=== PATIENT | male | born 1965 | race Caucasian/White ===

== ENCOUNTER 2016-09-05 21:19 | Emergency (ER) | payer MEDICARE, OTHER ==
[~2016-09-05 21:19] MED LIST: ACET650S11 PR; WAL-10TA2 PO; ZANTTAB9 PO; ZOCO40TA PO
[2016-09-05 21:21] VITALS: BP 131/75; PULSE 72; RESP 14; TEMP 97.5; O2SAT 97
[2016-09-05] MEDS ORDERED: PROM25TA5 PO (23:29)
[2016-09-05] MEDS ORDERED: ACET325T PO (23:29)
[2016-09-05] MEDS ORDERED: ALAV10TA10 PO (23:29)
[2016-09-05] MEDS ORDERED: RANI150C PO (23:29)
[2016-09-05] MEDS ORDERED: ZOCO20TA PO (23:29)
--- NOTE | 2016-09-05 23:33 | PD ---
HPI Chief Complaint: Fall Time Seen by Provider: 23:33 Travel History International Travel<30 days: No Contact w/Intl Traveler<30days: No Traveled to known affect area: No History of Present Illness HPI 51-year-old male with Down syndrome, who resides in a [facility], presents to emergency department for evaluation left wrist pain. Patient states that he was walking with one of the workers earlier today when he fell, landing on his outstretched left upper extremity. He also scraped his face on the ground during the fall. He did not lose consciousness. He has been acting himself this afternoon. No nausea, vomiting, focal deficits, or weakness. He has been complaining of left wrist pain. Pain is primarily on the anterior aspect of the left wrist. He states it is her second with movement of his wrist. He rates the pain a 7 out of 10. He has no alterations in sensation. He has no other symptoms to report. PFSH Past Medical History Heart Rhythm Problems: No Cardiac Catheterization: No Cardiovascular Problems: No High Cholesterol: No Congestive Heart Failure: No Developmental Delay: Yes Diabetes: No Diminished Hearing: No Tetanus Vaccination: Unknown Past Surgical History Coronary Artery Bypass Graft: No Social History Alcohol Use: No Tobacco Use: No Substance Use: No Allergies-Medications (Allergen,Severity, Reaction): Coded Allergies: Anectine (Unverified Allergy, Unknown, 09/05/16) Reported Meds & Prescriptions Reported Meds & Active Scripts Active Ibuprofen 600 Mg Tab 600 Mg PO Q8HR PRN Reported Phenergan (Promethazine HCl) 25 Mg Tab 25 Mg PO Q8HR PRN Alavert (Loratadine) 10 Mg Tab 10 Mg PO DAILY Acetaminophen 325 Mg Tab 325 Mg PO Q4-6H PRN Zocor (Simvastatin) 20 Mg Tab 20 Mg PO HS Ranitidine (Ranitidine HCl) 150 Mg Cap 150 Mg PO BID Review of Systems Except as stated in HPI: all other systems reviewed are Neg Physical Exam Narrative GENERAL: Well-nourished, male patient, ambulatory no acute distress SKIN: Warm and dry. Abrasion above the top lip and on the left cheek HEAD: Normocephalic. EYES: No scleral icterus. No injection or drainage. NECK: Supple, trachea midline. No JVD or lymphadenopathy. CARDIOVASCULAR: Regular rate and rhythm without murmurs, gallops, or rubs. RESPIRATORY: Breath sounds equal bilaterally. No accessory muscle use. EXTREMITY: There is mild swelling and tenderness of the left distal forearm and wrist. There is no obvious deformity. The skin is intact. Flexion and extension of the fingers is normal. The fingers are warm and well perfused. Sensation to light touch is intact in the hand. BACK: Nontender without obvious deformity. No CVA tenderness. Data Data Last Documented VS Vital Signs Date Time Temp Pulse Resp B/P Pulse Ox O2 Delivery O2 Flow Rate FiO2 09/05/16 21:21 97.5 72 14 131/75 97 Room Air Orders Wrist, Complete (Hzn1odk) (09/05/16 ) Splint Or Brace Apply/Monitor (09/06/16 00:08) Cockup Hand Splint (09/06/16 ) [facility] Medical Decision Making Medical Screen Exam Complete: Yes Emergency Medical Condition: Yes Medical Record Reviewed: Yes Differential Diagnosis Fracture versus sprain versus dislocation versus contusion Narrative Course 51-year-old male presents to emergency department for evaluation of left wrist pain following a trip and fall. X-ray imaging is without acute bony abnormality. The patient will be provided a Velcro wrist splint in counseling care. He agrees to return immediately with any acute worsening of symptoms. Diagnosis Primary Impression: Left wrist sprain Qualified Code: S63.502A - Left wrist sprain, initial encounter Additional Impression: Facial abrasion Qualified Code: S00.81XA - Facial abrasion, initial encounter Referrals: Primary Care Physician Patient Instructions: General Instructions, Wrist Sprain (ED) Additional Instructions: WEAR WRIST BRACE FOR SUPPORT AND COMFORT ICE AND ELEVATE WRIST TO REDUCE PAIN AND SWELLING FOLLOW UP WITH YOUR PRIMARY CARE PROVIDER OVER THE COUNTER ANTIBIOTIC OINTMENT TO FACIAL ABRASION RETURN TO ED WITH ACUTE WORSENING OF SYMPTOMS Med/Other Pt SpecificInfo: Prescription(s) given Scripts Ibuprofen 600 Mg [id number] Mg PO Q8HR PRN (PAIN) #30 TAB Ref 0 Prov:Susie Ly 09/06/16 Disposition: 01 DISCHARGE HOME Condition: Stable Susie Ly Sep 05, 2016 23:33
--- NOTE | 2016-09-05 23:54 | RADRPT ---
EXAM DATE/TIME: 09/05/2016 23:56 [facility] COMPARISON: No previous studies available for comparison. INDICATIONS : Patient fell this afternoon with caregiver. MEDICAL HISTORY : None. SURGICAL HISTORY : None. ENCOUNTER: Initial ACUITY: 1 day PAIN SCORE: 0/10 LOCATION: Left Wrist. FINDINGS: Three view examination of the left wrist demonstrates no soft tissue swelling, dislocation, or fractu re. The carpal bones are in normal alignment. The joint spaces are maintained. Bony mineralization is normal. CONCLUSION: No acute disease. Rodrigo Watts MD on September 05, 2016 at 23:53 Board Certified Radiologist. This report was verified electronically.
[2016-09-06] MEDS ORDERED: IBUP-232 PO (00:12)
== END 2016-09-06 00:49 | disposition home or self-care (01) ==
LOC: NEPB 21:19
DX: S63.502A Unspecified sprain of left wrist, initial encounter (principal); S00.81XA Abrasion of other part of head, initial encounter; Q90.9 Down syndrome, unspecified; W01.0XXA Fall on same level from slipping, tripping and stumbling without subsequent striking against object, initial encounter; Y93.01 Activity, walking, marching and hiking; Y92.199 Unspecified place in other specified residential institution as the place of occurrence of the external cause
CPT/HCPCS: 73110; 99284; L3908

== ENCOUNTER 2016-12-24 07:34 | Observation (INO) | payer MEDICARE, OTHER ==
[~2016-12-24] VITALS: Ht 160 cm; Wt 60.0 kg
[2016-12-24] VITALS (11 sets, daily range): BP systolic 94–116; BP diastolic 56–81; PULSE 55–96; RESP 16–20; TEMP 97.8–98.6; O2SAT 95–98
[~2016-12-24 07:34] MED LIST changes: +ACET325T PO; -ACET650S11 PR; +ALAV10TA10 PO; +IBUP-232 PO; +PROM25TA5 PO; +RANI150C PO; -WAL-10TA2 PO; -ZANTTAB9 PO; +ZOCO20TA PO; -ZOCO40TA PO
[2016-12-24] MEDS ORDERED: SODIUM CHLOR 0.9% 1000 ML INJ 1,000 ML IV SCH ×4 (07:40→11:21)
--- NOTE | 2016-12-24 07:43 | PD ---
HPI Chief Complaint: Altered Mental Status Time Seen by Provider: 07:40 Travel History International Travel<30 days: No Contact w/Intl Traveler<30days: No History of Present Illness HPI This is a 51-year-old male who has a history of Down syndrome who is brought into the emergency department for altered mental status. His retirement caregiver provides most of the information. She reports that this morning she was doing laundry with him stepped out of the room and then walked back in and he was on the floor having "convulsions". She's never seen him have a seizure before and he has no known seizure disorder. He seemed confused after this episode. She also reports that over the past several weeks he's been increasingly tired and sleepy. She says yesterday he was at lunch and he fell asleep and hit his head on the table and sustained a small abrasion. She also says he's been "spacing out" and they've had to get his attention more frequently which is unusual for him. PFSH Past Medical History Heart Rhythm Problems: No Cardiac Catheterization: No Cardiovascular Problems: No High Cholesterol: No Congestive Heart Failure: No Developmental Delay: Yes Diabetes: No Diminished Hearing: No Past Surgical History Coronary Artery Bypass Graft: No Social History Alcohol Use: No Tobacco Use: No Substance Use: No Allergies-Medications (Allergen,Severity, Reaction): Coded Allergies: Anectine (Unverified Allergy, Unknown, 12/24/16) Reported Meds & Prescriptions Reported Meds & Active Scripts Active Ibuprofen 600 Mg Tab 600 Mg PO Q8HR PRN Reported Phenergan (Promethazine HCl) 25 Mg Tab 25 Mg PO Q8HR PRN Alavert (Loratadine) 10 Mg Tab 10 Mg PO DAILY Acetaminophen 325 Mg Tab 325 Mg PO Q4-6H PRN Zocor (Simvastatin) 20 Mg Tab 20 Mg PO HS Ranitidine (Ranitidine HCl) 150 Mg Cap 150 Mg PO BID Review of Systems ROS Limitations: Poor Historian Physical Exam Narrative GENERAL:Well appearing, no acute distress SKIN: Small abrasion on the mid forehead. HEAD: Atraumatic. Normocephalic. EYES: Pupils equal and round. No injection or drainage. ENT: Moist mucous membranes NECK: Trachea midline. CARDIOVASCULAR: Regular rate and rhythm. No murmur appreciated. RESPIRATORY: Clear to auscultation. Breath sounds equal bilaterally. GASTROINTESTINAL: Abdomen soft, non-tender, nondistended. MUSCULOSKELETAL: No obvious deformities. NEUROLOGICAL: Awake and alert but not answering questions. No obvious cranial nerve deficits. Moving all extremities. Data Data Last Documented VS Vital Signs Date Time Temp Pulse Resp B/P Pulse Ox O2 Delivery O2 Flow Rate FiO2 12/24/16 09:18 64 18 98/57 96 Room Air 12/24/16 07:45 98.6 Orders Complete Blood Count With Diff (12/24/16 07:40) Comprehensive Metabolic Panel (12/24/16 07:40) Urinalysis - C+S If Indicated (12/24/16 07:40) Ct Brain W/O Iv Contrast(Rout) (12/24/16 07:40) Blood Glucose (12/24/16 07:40) Ecg Monitoring (12/24/16 07:40) Iv Access Insert/Monitor (12/24/16 07:40) Oximetry (12/24/16 07:40) Sodium Chloride 0.9% Flush (Ns Flush) (12/24/16 07:45) Sodium Chlor 0.9% 1000 Ml Inj (Ns 1000 M (12/24/16 07:40) Haloperidol Inj (Haldol Inj) (12/24/16 07:45) Restraints Non-Violent ZULMA.Q3H (12/24/16 07:40) Electrocardiogram (12/24/16 ) Troponin I (12/24/16 07:43) Sodium Chlor 0.9% 1000 Ml Inj (Ns 1000 M (12/24/16 09:00) Admit Order (Ed Use Only) (12/24/16 09:57) Labs Laboratory Tests Test 12/24/16 12/24/16 07:40 09:05 White Blood Count 5.3 TH/MM3 Red Blood Count 4.11 MIL/MM3 Hemoglobin 12.4 GM/DL Hematocrit 36.1 % Mean Corpuscular Volume 87.9 FL Mean Corpuscular Hemoglobin 30.2 PG Mean Corpuscular Hemoglobin 34.3 % Concent Red Cell Distribution Width 14.7 % Platelet Count 210 TH/MM3 Mean Platelet Volume 7.1 FL Neutrophils (%) (Auto) 54.5 % Lymphocytes (%) (Auto) 36.6 % Monocytes (%) (Auto) 5.9 % Eosinophils (%) (Auto) 2.1 % Basophils (%) (Auto) 0.9 % Neutrophils # (Auto) 2.9 TH/MM3 Lymphocytes # (Auto) 1.9 TH/MM3 Monocytes # (Auto) 0.3 TH/MM3 Eosinophils # (Auto) 0.1 TH/MM3 Basophils # (Auto) 0.0 TH/MM3 CBC Comment DIFF FINAL Differential Comment Sodium Level 141 MEQ/L Potassium Level 3.9 MEQ/L Chloride Level 108 MEQ/L Carbon Dioxide Level 24.3 MEQ/L Anion Gap 9 MEQ/L Blood Urea Nitrogen 21 MG/DL Creatinine 1.49 MG/DL Estimat Glomerular Filtration 50 ML/MIN Rate Random Glucose 107 MG/DL Calcium Level 8.1 MG/DL Total Bilirubin 0.4 MG/DL Aspartate Amino Transf 19 U/L (AST/SGOT) Alanine Aminotransferase 22 U/L (ALT/SGPT) Alkaline Phosphatase 74 U/L Troponin I LESS THAN 0.02 NG/ML Total Protein 6.8 GM/DL Albumin 2.9 GM/DL Urine Color LIGHT-YELLOW Urine Turbidity CLEAR Urine pH 5.0 Urine Specific [place] 1.012 Urine Protein NEG mg/dL Urine Glucose (UA) NEG mg/dL Urine Ketones NEG mg/dL Urine Occult Blood TRACE Urine Nitrite NEG Urine Bilirubin NEG Urine Urobilinogen LESS THAN 2.0 MG/DL Urine Leukocyte Esterase NEG Urine RBC 3 /hpf Urine WBC 1 /hpf Microscopic Urinalysis Comment CATH-CULT NOT IND MDM Medical Decision Making Medical Screen Exam Complete: Yes Emergency Medical Condition: Yes Interpretation(s) Afebrile, mild tachycardia, normotensive No leukocytosis Mild anemia Renal insufficiency Troponin is normal Urinalysis is negative for infection Differential Diagnosis Seizure, dehydration, electrolyte abnormality, arrhythmia Narrative Course This is a 51-year-old male who presents to the emergency department having had an episode of possible seizure. He was placed on a monitor and an IV was established. Labs are obtained which were reassuring. CT of the head was negative for intracranial hemorrhage. Patient has a history of Down syndrome and received Ativan prior to arrival with EMS so focused neurologic assessment is challenging. I think patient would benefit from observation, EEG and neurology consultation as he has never had a seizure before. Physician Communication Physician Communication Discussed with Dr. Kennedy Diagnosis Primary Impression: Seizure Admitting Information Admitting Physician Requests: Observation Ban Landry MD December 24, 2016 07:43
[2016-12-24] MEDS ORDERED: SODIUM CHLORIDE 0.9% FLUSH 5 ML FLUSH IV FLUSH PRN (07:45)
[2016-12-24] MEDS ORDERED: HALOPERIDOL LACTATE 5 MG/ML AMP IV PUSH ONE (07:45)
[2016-12-24 08:13] LABS: AUTOMATED NEUTROPHIL # 2.9 TH/MM3 (1.8-7.7); BASOPHIL % 0.9 % (0.0-2.0); EOSINOPHIL # 0.1 TH/MM3 (0-0.4); EOSINOPHIL % 2.1 % (0.0-4.0); HEMATOCRIT 36.1 % (39.0-51.0); HEMO FLAGS DIFF FINAL; LYMPH % 36.6 % (9.0-44.0); LYMPHOCYTE # 1.9 TH/MM3 (1.0-4.8); MEAN CELL VOLUME 87.9 FL (80.0-100.0); MEAN CORPUSCULAR HEMOGLOBIN 30.2 PG (27.0-34.0); MEAN CORPUSCULAR HGB CONC 34.3 % (32.0-36.0); MONO % 5.9 % (0.0-8.0); NEUT % 54.5 % (16.0-70.0); PLATELET COUNT 210 TH/MM3 (150-450); RED BLOOD COUNT 4.11 MIL/MM3 (4.50-5.90); RED CELL DISTRIBUTION WIDTH 14.7 % (11.6-17.2); WHITE BLOOD COUNT 5.3 TH/MM3 (4.0-11.0)
--- NOTE | 2016-12-24 08:26 | RADRPT ---
EXAM DATE/TIME: 12/24/2016 08:04 [facility] COMPARISON: No previous studies available for comparison. INDICATIONS : Confusion. Fall, hit head. RADIATION DOSE: 56.35 CTDIvol (mGy) MEDICAL HISTORY : Down's syndrome SURGICAL HISTORY : None. ENCOUNTER: Initial ACUITY: 1 day PAIN SCALE: 0/10 LOCATION: cranial TECHNIQUE: Multiple contiguous axial images were obtained of the head. Using automated exposure control and adj ustment of the mA and/or kV according to patient size, radiation dose was kept as low as reasonably a chievable to obtain optimal diagnostic quality images. FINDINGS: CEREBRUM: There is moderate generalized atrophy. Ventricles are normal in size. No evidence of midline shift, mass lesion, hemorrhage or acute infarction. No extra-axial fluid collections are seen. POSTERIOR FOSSA: The cerebellum and brainstem demonstrate no acute finding. The 4th ventricle is midline. The cerebe llopontine angle is unremarkable. EXTRACRANIAL: Left maxillary sinus is atelectatic. SKULL: The calvaria is intact. No evidence of skull fracture. CONCLUSION: No acute intracranial abnormality is identified. Jose Elias Casey MD on December 24, 2016 at 8:22 Board Certified Radiologist. This report was verified electronically.
[2016-12-24 08:31] LABS: ANION GAP 9 MEQ/L (5-15); AST (GOT) 19 U/L (15-37); BICARBONATE 24.3 MEQ/L (21.0-32.0); BLOOD UREA NITROGEN 21 MG/DL (7-18); CHLORIDE 108 MEQ/L (98-107); GLOMERULAR FILTRATION RATE 50 ML/MIN (>89); POTASSIUM 3.9 MEQ/L (3.5-5.1); SODIUM (NA) 141 MEQ/L (136-145)
[2016-12-24 08:34] LABS: ALKALINE PHOSPHATASE 74 U/L (45-117); ALT (GPT) 22 U/L (12-78); TOTAL BILIRUBIN ADULT 0.4 MG/DL (0.2-1.0)
[2016-12-24 09:37] LABS: BLOOD, URINE TRACE (NEG); GLUCOSE,URINE NEG (NEG); KETONE, URINE NEG (NEG); NITRITE,URINE NEG (NEG); URINE COLOR LIGHT-YELLOW (YELLW/STRAW)
[2016-12-24 09:38] LABS: COMMENT (UR) CATH-CULT NOT IND; CULTURE IF INDICATED CATH CULTURE NOT IND
[2016-12-24] MEDS ORDERED: MAGNESIUM HYDROXIDE SUSP 30 ML CUP PO PRN (10:00)
[2016-12-24] MEDS ORDERED: ACETAMINOPHEN 325 MG TAB PO PRN (10:00)
[2016-12-24] MEDS ORDERED: LACTULOSE SYRUP 20 GM/30 ML CUP PO PRN (10:00)
[2016-12-24] MEDS ORDERED: LORazepam 2 MG/ML VIAL IV PUSH PRN (10:00)
[2016-12-24] MEDS ORDERED: ONDANSETRON HCL 4 MG/2 ML VIAL IVP PRN (10:00)
[2016-12-24] MEDS ORDERED: BISACODYL 10 MG SUPP RECTAL PRN (10:00)
[2016-12-24] MEDS ORDERED: NALOXONE HCL 0.4 MG/ML AMP IV PRN (10:00)
[2016-12-24] MEDS ORDERED: SENNOSIDES 8.6 MG TAB PO PRN (10:00)
[2016-12-24] MEDS ORDERED: SODIUM CHLORIDE 0.9% FLUSH 10 ML FLUSH IV FLUSH PRN (10:00)
[2016-12-24] MEDS: HEPARIN SODIUM - SQ 10,000 UNITS/ML VIAL SQ SCH ×2 (10:48→22:17)
--- NOTE | 2016-12-24 11:25 | EKG ---
Date Performed: 12/24/2016 Time Performed: 07:58:12 PTAGE: 51 years EKG: Probable Sinus rhythm NORMAL ECG No significant change from prior electrocardiogram. PREVIOUS TRACING : 05/16/2015 15.38 DOCTOR: John Romano Interpretating Date/Time 12/24/2016 11:25:22
[2016-12-24] MEDS: levETIRAcetam INJ 500 MG in SODIUM CHLORIDE 0.9% INJ 100 ML IV SCH ×2 (11:32→22:16)
--- NOTE | 2016-12-24 12:20 | MB ---
cc: SILAS CUMMINGS DATE OF CONSULTATION 12/24/2016 INDICATION A 51-year-old man, right-handed, lives in a fpc with Down syndrome. He was found having a grand mal seizure on the floor. Had some urinary incontinence and then had a postictal episode. Brought him to the hospital. MEDICATIONS AT HOME 1. Phenergan. 2. Loratadine. 3. Tylenol. 4. Zocor. 5. Ranitidine. ALLERGIES ANECTINE. According to the detasseling crew supervisor she is not quite sure if he has any major medical problems. Obviously he must have some high cholesterol. Never had a seizure before. She has known him for five years. He is usually up, around, talking. REVIEW OF SYSTEMS Really unable to perform. MEDICATIONS Current meds: 1. Here he was given Keppra 500 q. 12. 2. Some subcutaneous heparin. PHYSICAL EXAMINATION VITAL SIGNS: Afebrile, 87, 116/81. There were no carotid bruits. HEART: Regular rhythm. I did not detect a murmur. HEENT: He has poor dentition. NEUROLOGIC: His visual serrano appear full. His pupils are equal. He follow commands fairly well. Face is symmetric. He had normal strength in the upper and lower extremities bilaterally. Toes downgoing bilaterally. He is awake, a little sleepy. He remembered he was in the hospital after I told him where he was with immediate me recall. LABORATORY DATA Basic metabolic profile normal except for a creatinine of 1.49. Glucose was normal. LFTs, troponin normal. Albumin is 2.9. UA negative. CBC is essentially normal. IMAGING CT scan of the brain was negative. IMPRESSION New-onset seizure activity. I agree with the Keppra. We will check an EEG, MRI and some other blood work. Otherwise he will probably be able to be discharged tomorrow on Keppra 500 b.i.d. MD SALVADOR Fernández/NORBERTO /11:22 AM /12:12 PM
--- NOTE | 2016-12-24 14:29 | HHI.PR ---
Objective Objective Results - Vital Signs Date Time Temp Pulse Resp B/P Pulse Ox O2 Delivery O2 Flow Rate FiO2 12/24/16 12:51 64 12/24/16 11:33 97.8 65 16 95/60 95 12/24/16 10:59 79 18 102/59 96 12/24/16 09:18 64 18 98/57 96 Room Air 12/24/16 07:45 87 20 96 Room Air 12/24/16 07:45 98.6 96 20 116/81 96 Room Air 12/24/16 07:45 96 Room Air 12/24/16 07:40 98.6 92 20 116/81 96 Result Diagram: 12/24/16 0740 12/24/16 0740 Other Results Laboratory Tests Test 12/24/16 12/24/16 07:40 09:05 White Blood Count 5.3 Red Blood Count 4.11 Hemoglobin 12.4 Hematocrit 36.1 Mean Corpuscular Volume 87.9 Mean Corpuscular Hemoglobin 30.2 Mean Corpuscular Hemoglobin 34.3 Concent Red Cell Distribution Width 14.7 Platelet Count 210 Mean Platelet Volume 7.1 Neutrophils (%) (Auto) 54.5 Lymphocytes (%) (Auto) 36.6 Monocytes (%) (Auto) 5.9 Eosinophils (%) (Auto) 2.1 Basophils (%) (Auto) 0.9 Neutrophils # (Auto) 2.9 Lymphocytes # (Auto) 1.9 Monocytes # (Auto) 0.3 Eosinophils # (Auto) 0.1 Basophils # (Auto) 0.0 CBC Comment DIFF FINAL Differential Comment Erythrocyte Sedimentation Rate 23 Sodium Level 141 Potassium Level 3.9 Chloride Level 108 Carbon Dioxide Level 24.3 Anion Gap 9 Blood Urea Nitrogen 21 Creatinine 1.49 Estimat Glomerular Filtration 50 Rate Random Glucose 107 Calcium Level 8.1 Total Bilirubin 0.4 Aspartate Amino Transf 19 (AST/SGOT) Alanine Aminotransferase 22 (ALT/SGPT) Alkaline Phosphatase 74 Troponin I LESS THAN 0.02 Total Protein 6.8 Albumin 2.9 Urine Color LIGHT-YELLOW Urine Turbidity CLEAR Urine pH 5.0 Urine Specific [place] 1.012 Urine Protein NEG Urine Glucose (UA) NEG Urine Ketones NEG Urine Occult Blood TRACE Urine Nitrite NEG Urine Bilirubin NEG Urine Urobilinogen LESS THAN 2.0 Urine Leukocyte Esterase NEG Urine RBC 3 Urine WBC 1 Microscopic Urinalysis Comment CATH-CULT NOT IND Physical Exam Physical Exam PHYSICAL EXAMINATION GENERAL: This is a well-developed, well-nourished male who appears to be in no acute distress. He is alert and awake, []. HEAD: Normocephalic without any lesion or mass noted. Facial features appear symmetric. EYES: Perrla, Normal eye movement, [] Icterus. [] Conj congestion. OROPHARYNGEAL: Oropharynx without erythema or edema. MOUTH/THROAT: Tongue midline []. Buccal mucosa is moist []. NECK: Supple. No nuchal rigidity or lymphadenopathy. Trachea midline without deviation. Thyroid not palpable, no bruits appreciated. CARDIAC: Regular rhythm, regular rate, S1 and S2 are heard. Murmur []; no gallops or rubs. LUNGS: Clear to auscultation bilaterally. [] wheeze, [] rhonchi or [] rale. No use of accessory muscles on inspiration or expiration. ABDOMEN: Soft, nontender, no organomegaly or masses. Bowel sounds are heard in all four quadrants. No rebound. No guarding. EXTREMITIES: [] edema. Pulses equal bilateral. [] cyanosis. NEUROLOGICAL: Patient mood and affect appropriate. Cranial nerves II through XII grossly intact. Muscle strength 5/5 in the upper and lower extremities bilaterally. Deep tendon reflexes are 2+ in the upper and lower extremities bilaterally. SKIN:Warm and moist PSYCH: Mood and affect appropriate A/P Assessment and Plan Patient seen and examined Please refer to admission h & P for details 51 yr old male with Down's syndrom , lives at a long-term , found to have Grandmal seizures recieved Ativan 2 mg i/v enroute NOw more alert passed bed side swallow advance diet to heart healthy APpreciate Neuro input Continue Keppra EEG PRN Ativan May need sitter Agree with I/v fluids monitor Creatinine lAbs in am no family at bedside discussed with nursing staff discussed with Chinyere Bustamante MD December 24, 2016 14:29
--- NOTE | 2016-12-24 16:30 | HHI.HP ---
HPI Service [facility] Primary Care Physician Unknown Admission Diagnosis seizure Diagnoses: Chief Complaint: seizure Travel History International Travel<30 Days: No Contact w/Intl Traveler <30 Da: No Traveled to Known Affected Are: Yes History of Present Illness This a 51-year-old male brought in from a local half-way, past medical history of Down syndrome, GERD, hyperlipidemia, development delay. Per ER report, caregiver was doing laundry with the patient when she stepped out of the room and walked back to in and noticed that he was on the floor having convulsions. Patient has never had seizures before, has no known seizure disorder. Patient was confused after episode. She also reported that over the last several weeks he's been increasingly tired and sleepy and during lunch yesterday he fell asleep and hit his head on the table. He sustained a small abrasion. She also reported that he's been spacing out and they've had to get his attention more frequently which is unusual for him. Laboratory workup completed in the emergency room was essentially normal. CT of the head negative. He was started on Keppra. Patient is now examined in room, he is not talking very much. Apparently patient he got out of bed and fell hitting his face, he is complaining of some dental pain. He has lower partial dentures. I do not see any loose teeth. Patient is following simple commands. Dr. Ruiz has evaluated and further workup has been ordered. Patient is admitted for evaluation and treatment. Review of Systems ROS Limitations: Clinical Condition, Altered Mental Status Past Family Social History Past Medical History Hyperlipidemia Down syndrome Develop mental delay GERD Reported Medications Reported Meds & Active Scripts Active Ibuprofen 600 Mg Tab 600 Mg PO Q8HR PRN Reported Zocor (Simvastatin) 20 Mg Tab 20 Mg PO HS Ranitidine (Ranitidine HCl) 150 Mg Cap 150 Mg PO BID Allergies: Coded Allergies: Anectine (Unverified Allergy, Unknown, 12/24/16) Active Ordered Medications Inpatient Medications Acetaminophen (Tylenol) 650 mg Q4H PRN PO TEMP > 100.4; Start 12/24/16 at 10:00 Bisacodyl (Dulcolax Supp) 10 mg DAILY PRN RECTAL SEVERE CONSITIPATION; Start at 10:00 Haloperidol Lactate (Haldol Inj) 2 mg ONCE ONCE IV PUSH ; Start 12/24/16 at 07: 45; Stop 12/24/16 at 09:58; Status DC Heparin Sodium (Porcine) (Heparin Inj) 5,000 units Q12H SQ Last administered on 12/24/16 10:48; Start 12/24/16 at 10:00 IV Flush (NS Flush) 2 ml UNSCH PRN IV FLUSH FLUSH AFTER USING IV ACCESS; Start 12/24/16 at 07:45; Stop 12/24/16 at 10:01; Status DC Lactulose (Lactulose Liq) 30 ml DAILY PRN PO SEVERE CONSITIPATION; Start at 10:00 Levetriacetam 500 mg/Sodium Chloride 105 ml @ 420 mls/hr Q12H IV Last administered on 12/24/16 11:32; Start 12/24/16 at 11:00 Lorazepam 1 mg 1 mg Q2H PRN IV PUSH seizure; Start 12/24/16 at 10:00 Magnesium Hydroxide (Milk Of Magnesia Liq) 30 ml Q12H PRN PO MILD - MODERATE CONSTIPATION; Start 12/24/16 at 10:00 Naloxone HCl (Narcan Inj) 0.4 mg UNSCH PRN IV SEE LABEL COMMENTS; Start at 10:00 Ondansetron HCl (Zofran Inj) 4 mg Q6H PRN IVP NAUSEA OR VOMITING; Start at 10:00 Senna/Docusate Sodium (Kinjal-Colace) 1 tab BID PO ; Start 12/24/16 at 21:00 Sennosides (Senokot) 17.2 mg Q12H PRN PO MODERATE - SEVERE CONSTIPATION; Start 12/24/16 at 10:00 Sodium Chloride (NS 1000 ml Inj) 1,000 ml @ 75 mls/hr [id number] IV Last administered on 12/24/16 11:33; Start 12/24/16 at 11:21 Sodium Chloride (NS Flush) 2 ml BID IV FLUSH ; Start 12/24/16 at 21:00 Family History Unable to obtain Social History No documented history of alcohol abuse, substance abuse, tobacco abuse. Patient is a resident at a half-way. Physical Exam Vital Signs Vital Signs Date Time Temp Pulse Resp B/P Pulse Ox O2 Delivery O2 Flow Rate FiO2 12/24/16 14:48 97.8 58 16 94/65 98 12/24/16 12:51 64 12/24/16 11:33 97.8 65 16 95/60 95 12/24/16 10:59 79 18 102/59 96 12/24/16 09:18 64 18 98/57 96 Room Air 12/24/16 07:45 87 20 96 Room Air 12/24/16 07:45 98.6 96 20 116/81 96 Room Air 12/24/16 07:45 96 Room Air 12/24/16 07:40 98.6 92 20 116/81 96 Physical Exam GENERAL: This is a well-nourished, well-developed patient, in no apparent distress. SKIN: Abrasion noted to forehead. HEAD: Atraumatic. Normocephalic. No temporal or scalp tenderness. EYES: Pupils equal round and reactive. Extraocular motions intact. No scleral icterus. No injection or drainage. ENT: Nose without bleeding, purulent drainage or septal hematoma. Throat without erythema, tonsillar hypertrophy or exudate. Uvula midline. Airway patent. NECK: Trachea midline. No JVD or lymphadenopathy. Supple, nontender, no meningeal signs. CARDIOVASCULAR: Regular rate and rhythm without murmurs, gallops, or rubs. RESPIRATORY: Clear to auscultation. Breath sounds equal bilaterally. No wheezes , rales, or rhonchi. GASTROINTESTINAL: Abdomen soft, non-tender, nondistended. No hepato-splenomegaly , or palpable masses. No guarding. MUSCULOSKELETAL: Extremities without clubbing, cyanosis, or edema. No joint tenderness, effusion, or edema noted. No calf tenderness. Negative Homans sign bilaterally. NEUROLOGICAL: Patient is somewhat somnolent, verbalizing very little. Appears to move all extremities well. No focal deficits. Difficult to assess orientation. Laboratory Laboratory Tests Test 12/24/16 12/24/16 12/24/16 07:40 09:05 13:30 White Blood Count 5.3 Red Blood Count 4.11 Hemoglobin 12.4 Hematocrit 36.1 Mean Corpuscular Volume 87.9 Mean Corpuscular Hemoglobin 30.2 Mean Corpuscular Hemoglobin 34.3 Concent Red Cell Distribution Width 14.7 Platelet Count 210 Mean Platelet Volume 7.1 Neutrophils (%) (Auto) 54.5 Lymphocytes (%) (Auto) 36.6 Monocytes (%) (Auto) 5.9 Eosinophils (%) (Auto) 2.1 Basophils (%) (Auto) 0.9 Neutrophils # (Auto) 2.9 Lymphocytes # (Auto) 1.9 Monocytes # (Auto) 0.3 Eosinophils # (Auto) 0.1 Basophils # (Auto) 0.0 CBC Comment DIFF FINAL Differential Comment Erythrocyte Sedimentation Rate 23 Sodium Level 141 Potassium Level 3.9 Chloride Level 108 Carbon Dioxide Level 24.3 Anion Gap 9 Blood Urea Nitrogen 21 Creatinine 1.49 Estimat Glomerular Filtration 50 Rate Random Glucose 107 Calcium Level 8.1 Total Bilirubin 0.4 Aspartate Amino Transf 19 (AST/SGOT) Alanine Aminotransferase 22 (ALT/SGPT) Alkaline Phosphatase 74 Troponin I LESS THAN 0.02 Total Protein 6.8 Albumin 2.9 Urine Color LIGHT-YELLOW Urine Turbidity CLEAR Urine pH 5.0 Urine Specific [place] 1.012 Urine Protein NEG Urine Glucose (UA) NEG Urine Ketones NEG Urine Occult Blood TRACE Urine Nitrite NEG Urine Bilirubin NEG Urine Urobilinogen LESS THAN 2.0 Urine Leukocyte Esterase NEG Urine RBC 3 Urine WBC 1 Microscopic Urinalysis Comment CATH-CULT NOT IND Vitamin B12 Level 479 Free Thyroxine 1.00 Thyroid Stimulating Hormone 4.170 3rd Gen Result Diagram: 12/24/16 0740 12/24/16 0740 Imaging Last Impressions Head CT 12/24/16 0740 Signed Impressions: Service Date/Time: Saturday, December 24, 2016 08:04 - CONCLUSION: No acute intracranial abnormality is identified. Jose Elias Casey MD Assessment and Plan Problem List: (1) Seizure (2) Facial abrasion (3) Hyperlipidemia (4) Down syndrome (5) Acute renal injury Assessment and Plan Admit to Dr. Kennedy 51-year-old male with history of Down syndrome and mental mental delay, presented to the emergency room after he was noted having what sounds like a grand mal seizure. -Neuro checks -Seizure precautions -Bedrails to be padded, bed alarm to be put in place. If necessary we will use a sitter. -Continue with Keppra -Ativan when necessary for seizures EEG ordered Neurology has been consulted, Dr. Zuniga has evaluated, his input appreciated. He recommends MRI of the brain, currently pending. Further laboratory workup has been ordered. Acute renal injury Continue with hydration BMP in the morning Home medications have been reviewed, initiated as indicated Heparin for DVT prophylaxis Plan of care has been discussed with the attending and RN. Further management of the patient will be dependent on the hospital course This patient was seen by myself and Dr. Kennedy, this H&P is written on her behalf. Problem Qualifiers (1) Facial abrasion: Qualified Code: S00.81XA - Facial abrasion, initial encounter (2) Hyperlipidemia: Qualified Code: E78.5 - Hyperlipidemia, unspecified hyperlipidemia type Tg Peacock December 24, 2016 16:29
[2016-12-24] MEDS ORDERED: IBUPROFEN 600 MG TAB PO PRN (18:30)
[2016-12-24] MEDS ORDERED: NON-FORMULARY DRUG (Ranitidine 150 MG) PO SCH (21:00)
[2016-12-24] MEDS ORDERED: NON-FORMULARY DRUG (Simvastatin (Zocor) 20 MG) PO SCH (21:00)
[2016-12-24] MEDS: SODIUM CHLORIDE 0.9% FLUSH 10 ML FLUSH IV FLUSH SCH (22:16)
[2016-12-24] MEDS: PRAVASTATIN SOD 40 MG TAB PO SCH (22:17)
[2016-12-24] MEDS: DOCUSATE SODIUM 50 MG/SENNA 8.6 MG TAB PO SCH (22:17)
[2016-12-24] MEDS ORDERED: LORazepam 2 MG/ML VIAL IV ONE (23:15)
[2016-12-24] MEDS: DEXT 5%-NACL 0.9% 1000 ML INJ 1,000 ML IV SCH (23:20)
[2016-12-25] VITALS (7 sets, daily range): BP systolic 84–104; BP diastolic 50–60; PULSE 51–66; RESP 16–18; TEMP 95.9–98.5; O2SAT 95–99
[2016-12-25 06:09] LABS: AUTOMATED NEUTROPHIL # 4.1 TH/MM3 (1.8-7.7); BASOPHIL # 0.1 TH/MM3 (0-0.2); EOSINOPHIL # 0.1 TH/MM3 (0-0.4); EOSINOPHIL % 1.2 % (0.0-4.0); HEMATOCRIT 33.5 % (39.0-51.0); HEMO FLAGS DIFF FINAL; LYMPH % 23.5 % (9.0-44.0); LYMPHOCYTE # 1.4 TH/MM3 (1.0-4.8); MEAN CELL VOLUME 87.5 FL (80.0-100.0); MEAN CORPUSCULAR HEMOGLOBIN 29.8 PG (27.0-34.0); NEUT % 68.3 % (16.0-70.0); PLATELET COUNT 203 TH/MM3 (150-450); RED BLOOD COUNT 3.82 MIL/MM3 (4.50-5.90); RED CELL DISTRIBUTION WIDTH 14.9 % (11.6-17.2); WHITE BLOOD COUNT 6.1 TH/MM3 (4.0-11.0)
[2016-12-25 06:22] LABS: BICARBONATE 24.5 MEQ/L (21.0-32.0); POTASSIUM 3.4 MEQ/L (3.5-5.1)
[2016-12-25] MEDS ORDERED: POTASSIUM CHLORIDE 25 MEQ EFFERVESCENT TAB PO ONE (08:00)
--- NOTE | 2016-12-25 08:31 | HHI.PR ---
Subjective Subjective Remarks doesn't talk much, more awake today oriented to self, knows he is in hospital overnight, agitated removed tele monitor, diaper no seizures observed no fever difficult to obtain ROS Review of Systems Constitutional Constitutional Remarks unable to obtain ROS Vitals/Results Vital Signs Vital Signs Date Time Temp Pulse Resp B/P Pulse Ox O2 Delivery O2 Flow Rate FiO2 12/25/16 07:16 98.4 58 18 92/50 95 12/25/16 04:15 97.4 63 18 84/52 97 12/25/16 00:04 95.9 66 18 93/57 96 12/24/16 20:06 98.2 58 18 105/60 97 12/24/16 19:00 55 12/24/16 18:03 69 20 114/64 98 12/24/16 16:47 97.9 63 16 102/56 97 12/24/16 14:48 97.8 58 16 94/65 98 12/24/16 12:51 64 12/24/16 11:33 97.8 65 16 95/60 95 12/24/16 10:59 79 18 102/59 96 12/24/16 09:18 64 18 98/57 96 Room Air CBC/BMP: 12/25/16 0555 12/25/16 0555 Lab Results Laboratory Tests Test 12/24/16 12/24/16 12/25/16 09:05 13:30 05:55 Urine Color LIGHT-YELLOW Urine Turbidity CLEAR Urine pH 5.0 Urine Specific [place] 1.012 Urine Protein NEG mg/dL Urine Glucose (UA) NEG mg/dL Urine Ketones NEG mg/dL Urine Occult Blood TRACE Urine Nitrite NEG Urine Bilirubin NEG Urine Urobilinogen LESS THAN 2.0 MG/DL Urine Leukocyte Esterase NEG Urine RBC 3 /hpf Urine WBC 1 /hpf Microscopic Urinalysis Comment CATH-CULT NOT IND Vitamin B12 Level 479 PG/ML Free Thyroxine 1.00 NG/DL Thyroid Stimulating Hormone 4.170 uIU/ML 3rd Gen White Blood Count 6.1 TH/MM3 Red Blood Count 3.82 MIL/MM3 Hemoglobin 11.4 GM/DL Hematocrit 33.5 % Mean Corpuscular Volume 87.5 FL Mean Corpuscular Hemoglobin 29.8 PG Mean Corpuscular Hemoglobin 34.0 % Concent Red Cell Distribution Width 14.9 % Platelet Count 203 TH/MM3 Mean Platelet Volume 7.1 FL Neutrophils (%) (Auto) 68.3 % Lymphocytes (%) (Auto) 23.5 % Monocytes (%) (Auto) 6.0 % Eosinophils (%) (Auto) 1.2 % Basophils (%) (Auto) 1.0 % Neutrophils # (Auto) 4.1 TH/MM3 Lymphocytes # (Auto) 1.4 TH/MM3 Monocytes # (Auto) 0.4 TH/MM3 Eosinophils # (Auto) 0.1 TH/MM3 Basophils # (Auto) 0.1 TH/MM3 CBC Comment DIFF FINAL Differential Comment Sodium Level 144 MEQ/L Potassium Level 3.4 MEQ/L Chloride Level 112 MEQ/L Carbon Dioxide Level 24.5 MEQ/L Anion Gap 8 MEQ/L Blood Urea Nitrogen 13 MG/DL Creatinine 1.17 MG/DL Estimat Glomerular Filtration 65 ML/MIN Rate Random Glucose 120 MG/DL Calcium Level 7.9 MG/DL Physical Exam General General Appearance: Well Developed, Well Nourished, No Acute Distress, Comfortable Eyes Eye Exam: Pupils Equal, Pupils Reactive Ears & Nose Ears & Nose Exam: Nasal Mucosa [place] Throat Throat Exam: Oral Mucosa [place] & Moist Neck Neck Exam: Neck Supple, Trachea Midline Pulmonary Resp Exam: Breath Sounds Equal Cardiology CV Exam: Regular, Good Perfusion Gastrointestinal/Abdomen GI Exam: Soft, Non-Tender, Bowel Sounds Present, Non-Distended Musculoskeletal MS Exam: Joints Intact Integumentary Skin Exam: Warm, Dry Extremeties Extremities Exam: No Edema, Pedal Pulses Palpable Neurologic Neuro Exam: Awake, Moving All Extremities VTE Prophylaxis VTE Prophylaxis Device: SCDs VTE Prophylaxis Meds: Heparin Assessment/Plan Problem List: (1) Seizure (2) Facial abrasion (3) Down syndrome (4) Acute renal injury (5) Hyperlipidemia Assessment/Plan 51-year-old male with history of Down syndrome and mental mental delay, presented to the emergency room after he was noted having what sounds like a grand mal seizure. -Neuro checks -Seizure precautions -Bedrails to be padded, bed alarm to be put in place. If necessary we will use a sitter. -Continue with Keppra -Ativan when necessary for seizures EEG ordered, pending Neurology has been consulted, Dr. Zuniga has evaluated, his input appreciated. He recommends MRI of the brain, currently pending -labs reviewed stable, B12 pending, Acute renal injury Continue with hydration -renal function now normal Heparin for DVT prophylaxis will f/u on EEG and MRI results, not ready for dc yet D/W RN D/W Dr. Kennedy This patient was seen by myself and Dr. Kennedy, this note is written on her behalf. Problem Qualifiers (1) Facial abrasion: Qualified Code: S00.81XA - Facial abrasion, initial encounter (2) Hyperlipidemia: Qualified Code: E78.5 - Hyperlipidemia, unspecified hyperlipidemia type Tg Peacock December 25, 2016 08:31
[2016-12-25] MEDS: SODIUM CHLORIDE 0.9% FLUSH 10 ML FLUSH IV FLUSH SCH ×2 (09:00→21:21)
--- NOTE | 2016-12-25 09:09 | HHI.PR ---
Objective Vital Signs Date Time Temp Pulse Resp B/P Pulse Ox O2 Delivery O2 Flow Rate FiO2 12/25/16 07:16 98.4 58 18 92/50 95 12/25/16 04:15 97.4 63 18 84/52 97 12/25/16 00:04 95.9 66 18 93/57 96 12/24/16 20:06 98.2 58 18 105/60 97 12/24/16 19:00 55 12/24/16 18:03 69 20 114/64 98 12/24/16 16:47 97.9 63 16 102/56 97 12/24/16 14:48 97.8 58 16 94/65 98 12/24/16 12:51 64 12/24/16 11:33 97.8 65 16 95/60 95 12/24/16 10:59 79 18 102/59 96 12/24/16 09:18 64 18 98/57 96 Room Air Result Diagram: 12/25/16 0555 12/25/16 0555 Objective Remarks a little sleepy after ativan Assessment and Plan Assessment and Plan eeg and mri change to po keppra could dc after mri and eeg if mri nl on keppra 500 bid and fu my office no more sedatives Иван Schmidt MD December 25, 2016 09:09
[2016-12-25] MEDS: levETIRAcetam 500 MG TAB PO SCH ×2 (09:29→21:20)
[2016-12-25] MEDS: FAMOTIDINE 20 MG TAB PO SCH (09:30)
[2016-12-25] MEDS: HEPARIN SODIUM - SQ 10,000 UNITS/ML VIAL SQ SCH ×2 (09:31→21:20)
[2016-12-25] MEDS: DOCUSATE SODIUM 50 MG/SENNA 8.6 MG TAB PO SCH ×2 (09:34→21:20)
[2016-12-25 11:11] LABS: RAPID PLASMA REAGIN SCREEN NON-REACTIVE (NON-REACTVE)
--- NOTE | 2016-12-25 12:27 | HHI.FF ---
Face to Face Verification Diagnosis: (1) Seizure Physical Therapy Order: Evaluate and Treat Home Health Nursing Order: Medical education Nursing assessment with vital signs I have seen patient Kobi Menjivar on 12/25/16. My clinical findings support the need for the requested home health care services because: Limited ability to care for self Need for psychosocial assistance Impaired cognition/judgement High risk of falls I certify that my clinical findings support that this patient is homebound because: Impaired cognitive ability/safety Unsteady gait/balance Unsafe to leave home unassisted Need for psychosocial assistance [facility]acock [employer] December 25, 2016 12:27
[2016-12-25] MEDS: DEXT 5%-NACL 0.9% 1000 ML INJ 1,000 ML IV SCH (12:35)
--- NOTE | 2016-12-25 14:29 | RADRPT ---
EXAM DATE/TIME: 12/25/2016 12:25 [facility] COMPARISON: CT BRAIN W/O CONTRAST, December 24, 2016, 8:04. INDICATIONS : Down syndrome patient who was brought into the emergency department for altered mental status. MEDICAL HISTORY : None. SURGICAL HISTORY : Cataract ENCOUNTER: Subsequent ACUITY: 2 day PAIN SCORE: 0/10 LOCATION: cranial TECHNIQUE: Multiplanar, multisequence MRI of the brain was performed without contrast. FINDINGS: Examination quality is degraded by motion artifact. CEREBRUM: There is moderate generalized atrophy. Ventricles are normal in size. No evidence of midline shift, mass lesion, hemorrhage or acute infarction. No extraaxial fluid collections are seen. The pituitar y gland and suprasellar cistern are normal in configuration. WHITE MATTER: No significant signal abnormalities are seen in the white matter. POSTERIOR FOSSA: The cerebellum and brainstem demonstrate no acute finding. The 4th ventricle is midline. The cerebel lopontine angle is unremarkable. The cerebellar tonsils are normal in position. DIFFUSION IMAGING: No focal areas of restricted diffusion are seen. No evidence of acute infarction. EXTRACRANIAL: The visualized portions of the orbits and paranasal sinuses are unremarkable. CONCLUSION: 1. Examination quality degraded by motion artifact. However, no acute intracranial abnormality is devi ntified. 2. There is moderate generalized cerebral atrophy. Jose Elias Casey MD on December 25, 2016 at 14:24 Board Certified Radiologist. This report was verified electronically.
[2016-12-25] MEDS ORDERED: levETIRAcetam PO (16:21)
--- NOTE | 2016-12-25 16:22 | HHI.DCPOC ---
Discharge Care Plan Diagnosis: (1) Seizure Your Health Problems Are: Anxiety Difficulty with ADL Loss of Movements Goals to Promote Your Health * To prevent worsening of your condition and complications * To maintain your health at the optimal level Directions to Meet Your Goals Take your medications as prescribed Follow your dietary instruction Follow activity as directed Keep your appointments as scheduled Take your immunizations and boosters as scheduled If your symptoms worsen call your PCP, if no PCP go to Urgent Care Center or Emergency Room Smoking is Dangerous to Your Health. Avoid second hand smoke Call the 24-hour hour crisis hotline for domestic abuse at [facility]. [facility] December 25, 2016 16:22
--- NOTE | 2016-12-25 16:54 | MG ---
cc: ANTIONETTEist Sex: M DATE OF STUDY: 12/25/2016 TECHNIQUE 17 channel EEG. DESCRIPTION The background rhythm is symmetrical alpha rhythm frequency is 8-9 Hz amplitude is about 20-30 microvolts, during drowsiness there is slowing in the theta range at roughly 6 Hz. The patient does appear to fall asleep in the tracing and there are some sleep spindles present. Occasional muscle artifact is identified. No lateralizing features are seen and no epileptic features identified. Photic stimulation results in a normal driving response. INTERPRETATION Normal EEG. MD NOLAN Rae/ANTONIA /3:12 PM /4:42 PM
[2016-12-25] MEDS: PRAVASTATIN SOD 40 MG TAB PO SCH (21:20)
[2016-12-26 00:12] VITALS: BP 110/64; PULSE 62; RESP 18; TEMP 95.5
[2016-12-26 03:58] VITALS: PULSE 55
[2016-12-26 04:31] VITALS: BP 97/64; PULSE 54; RESP 18; TEMP 97.4; O2SAT 98
--- NOTE | 2016-12-26 07:30 | HHI.PR ---
Subjective Subjective Remarks sleeping soundly, No SOB or facial grimmace. afebrile color pink (Naheed Ackerman) Review of Systems Constitutional Constitutional Remarks limited ROS exam, sleeping, downs symdrome (Naheed Ackerman) Vitals/Results Intake & Output 12/25/16 12/25/16 12/26/16 15:00 23:00 07:00 Intake Total 240 ml Balance 240 ml Intake Oral 240 ml # Voids 3 Vital Signs Vital Signs Date Time Temp Pulse Resp B/P Pulse Ox O2 Delivery O2 Flow Rate FiO2 12/26/16 04:31 97.4 54 18 97/64 98 12/26/16 03:58 55 12/26/16 00:12 95.5 62 18 110/64 12/25/16 19:44 98.0 64 18 89/56 99 12/25/16 14:48 98.5 65 16 101/55 98 12/25/16 12:35 51 12/25/16 11:33 97.6 64 18 104/60 99 (Naheed Ackerman) CBC/BMP: 12/25/16 0555 12/25/16 0555 Imaging Remarks Last Impressions Brain MRI 12/25/16 1121 Signed Impressions: Service Date/Time: Sunday, December 25, 2016 12:25 - CONCLUSION: 1. Examination quality degraded by motion artifact. However, no acute intracranial abnormality is identified. 2. There is moderate generalized cerebral atrophy. Jose Elias Casey MD Head CT 12/24/16 0740 Signed Impressions: Service Date/Time: Saturday, December 24, 2016 08:04 - CONCLUSION: No acute intracranial abnormality is identified. Jose Elias Casey MD Current Medications Administered Medications Medications (Trade) Dose Ordered Sig/Miranda Route PRN Reason Start Time Stop Time Status Last Admin Dose Admin Sodium Chloride (NS Flush) 2 ml BID IV FLUSH 12/24/16 21:00 12/25/16 21:21 Heparin Sodium (Porcine) (Heparin Inj) 5,000 units Q12H SQ 12/24/16 10:00 12/25/16 21:20 Senna/Docusate Sodium (Kinjal-Colace) 1 tab BID PO 12/24/16 21:00 12/25/16 21:20 Famotidine (Pepcid) 20 mg DAILY PO 12/25/16 09:00 12/25/16 09:30 Pravastatin Sodium 40 mg 40 mg HS PO 12/24/16 21:00 12/25/16 21:20 Dextrose/Sodium Chloride (D5W-NS 1000 ml Inj) 1,000 ml @ 75 mls/hr [id number] IV 12/24/16 23:15 12/24/16 23:20 Levetriacetam (Keppra) 500 mg Q12HR PO 12/25/16 09:15 12/25/16 21:20 (Naheed Ackerman ASSISTANT PROFESSOR OF PHYSICS) Physical Exam General General Appearance: Well Developed, Well Nourished, No Acute Distress, Comfortable (Naheed Ackerman. ASSISTANT PROFESSOR OF PHYSICS) Eyes Eye Exam: Pupils Equal, Pupils Reactive (Naheed Ackeramn. ASSISTANT PROFESSOR OF PHYSICS) Ears & Nose Ears & Nose Exam: Nasal Mucosa [place] (Naheed Ackerman ASSISTANT PROFESSOR OF PHYSICS) Throat Throat Exam: Oral Mucosa [place] & Moist (Naheed Ackerman ASSISTANT PROFESSOR OF PHYSICS) Neck Neck Exam: Neck Supple, Trachea Midline (Naheed Ackerman. ASSISTANT PROFESSOR OF PHYSICS) Pulmonary Resp Exam: Breath Sounds Equal (Naheed Ackerman ASSISTANT PROFESSOR OF PHYSICS) Cardiology CV Exam: Regular, Good Perfusion (Naheed Ackerman. ASSISTANT PROFESSOR OF PHYSICS) Gastrointestinal/Abdomen GI Exam: Soft, Non-Tender, Bowel Sounds Present, Non-Distended (Naheed Ackerman M. ASSISTANT PROFESSOR OF PHYSICS) Musculoskeletal MS Exam: Joints Intact MS Remarks debility (Naheed Ackerman ASSISTANT PROFESSOR OF PHYSICS) Integumentary Skin Exam: Warm, Dry (Naheed Ackerman. ASSISTANT PROFESSOR OF PHYSICS) Extremeties Extremities Exam: No Edema, Pedal Pulses Palpable (Naheed Ackerman. ASSISTANT PROFESSOR OF PHYSICS) Neurologic Neuro Exam: Awake, Moving All Extremities Neuro Remarks sleeping (Naheed Ackerman. ASSISTANT PROFESSOR OF PHYSICS) VTE Prophylaxis VTE Prophylaxis Device: SCDs VTE Prophylaxis Meds: Heparin (Naheed Ackerman. ASSISTANT PROFESSOR OF PHYSICS) Assessment/Plan Problem List: (1) Seizure (2) Facial abrasion (3) Down syndrome (4) Acute renal injury (5) Hyperlipidemia Assessment/Plan 6. Hypokalemia 7. Debility vitals reviewed, BP low normal, 97/64, jeniffer at 54, but appears to be his norm, No SOB noted labs reviewed, Hypokalemia yesterday, patient recieved K dose PO< Mild TSH elevation -Seizure precautions -Bedrails to be padded, bed alarm to be put in place. If necessary we will use a sitter. Pulled out IVs during the night. -Continue with Keppra -Ativan when necessary for seizures EEG Neurology has been consulted, Dr. Zuniga has evaluated, his input appreciated. He recommends MRI of the brain, showing atrophy. Acute renal injury hydration done, encouraged PO liquid WA -renal function trend normal now Heparin for DVT prophylaxis Discharge planning , Patient will need to return ambulating , currently debilatated even when up to [facility]. PT assessment pending. Will need agressive mobility today for eval and treat. D/W RN D/W Dr. Kennedy, seen on her behalf (Naheed Ackerman) Assessment/Plan Patient seen and examined more alert today walked with PT cleared for discharge to [facility] discussed with nursing staff discussed with case monitor discussed with Naheed SHORT (Chinyere Kennedy MD) Problem Qualifiers (1) Facial abrasion: Qualified Code: S00.81XA - Facial abrasion, initial encounter (2) Hyperlipidemia: Qualified Code: E78.5 - Hyperlipidemia, unspecified hyperlipidemia type Naheed Ackerman December 26, 2016 07:30 Chinyere Kennedy MD December 26, 2016 13:38
[2016-12-26 07:48] VITALS: BP 93/56; PULSE 54; RESP 20; TEMP 98.3; O2SAT 96
--- NOTE | 2016-12-26 07:58 | HHI.PR ---
Objective Vital Signs Date Time Temp Pulse Resp B/P Pulse Ox O2 Delivery O2 Flow Rate FiO2 12/26/16 07:48 98.3 54 20 93/56 96 12/26/16 04:31 97.4 54 18 97/64 98 12/26/16 03:58 55 12/26/16 00:12 95.5 62 18 110/64 12/25/16 19:44 98.0 64 18 89/56 99 12/25/16 14:48 98.5 65 16 101/55 98 12/25/16 12:35 51 12/25/16 11:33 97.6 64 18 104/60 99 I/O 12/25/16 12/25/16 12/25/16 12/26/16 12/26/16 12/26/16 07:00 15:00 23:00 07:00 15:00 23:00 Intake Total 240 ml Balance 240 ml Intake Oral 240 ml # Voids 3 Result Diagram: 12/25/16 0555 12/25/16 0555 Objective Remarks hard to awaken Assessment and Plan Assessment and Plan eeg and mri nl change to denny storey check abg i think ateben has not worn off check abg when he awakens more can get oob and dc if steady on feet no more Иван Wilson MD December 26, 2016 07:58
[2016-12-26 08:15] VITALS: PULSE 57
[2016-12-26 08:19] LABS: BLOOD GAS CARBOXYHEMOGLOBIN 1.2 % (0-4); BLOOD GAS HCO3 23 mmol/L (22-26); BLOOD GAS METHEMOGLOBIN 0.5 % (0-2); BLOOD GAS O2 HGB SATURATION 97 % (90-100); BLOOD GAS OXYGEN CONTENT 18.1 Vol % (12.0-20.0); BLOOD GAS PCO2 35 mmHg (38-42); BLOOD GAS PO2 108 mmHG (61-120); BLOOD GAS TOTAL HGB 13.2 G/DL (12.0-16.0); TEMP CORR TO 98.6
[2016-12-26 08:20] LABS: CRITICAL VALUE NO; DRAW SITE LT RADIAL; FIO2 21 %; NUMBER OF ARTERIAL PUNCTURES 1; OXYGEN DEVICE ROOM AIR; STAT NO
[2016-12-26] MEDS: SODIUM CHLORIDE 0.9% FLUSH 10 ML FLUSH IV FLUSH SCH (09:00)
[2016-12-26] MEDS: HEPARIN SODIUM - SQ 10,000 UNITS/ML VIAL SQ SCH (09:29)
[2016-12-26] MEDS: levETIRAcetam 500 MG TAB PO SCH (09:29)
[2016-12-26] MEDS: FAMOTIDINE 20 MG TAB PO SCH (09:29)
[2016-12-26] MEDS: DOCUSATE SODIUM 50 MG/SENNA 8.6 MG TAB PO SCH (10:11)
[2016-12-26 11:53] VITALS: BP 118/72; PULSE 62; RESP 20; TEMP 98.7; O2SAT 95
--- NOTE | 2016-12-26 16:10 | HHI.DS ---
Discharge Summary Admission Date December 24, 2016 at 09:58 Discharge Date: December 26, 2016 Admitting Diagnosis seizure (1) Seizure Diagnosis: Principal (2) Facial abrasion Diagnosis: Principal (3) Hyperlipidemia Diagnosis: Secondary (4) Down syndrome Diagnosis: Secondary (5) Acute renal injury Diagnosis: Principal Brief History This was a 51-year-old male brought in from a local detention, past medical history of Down syndrome, GERD, hyperlipidemia, development delay. Per ER report, caregiver was doing laundry with the patient when she stepped out of the room and walked back to in and noticed that he was on the floor having convulsions. Patient had never had seizures before, has no known seizure disorder. Patient was confused after episode. She also reported that over the last several weeks he's been increasingly tired and sleepy and during lunch yesterday he fell asleep and hit his head on the table. He sustained a small abrasion. She also reported that he's been spacing out and they've had to get his attention more frequently which is unusual for him. Laboratory workup completed in the emergency room was essentially normal. CT of the head negative. He was started on Keppra. Patient was examined in room, he was not talking very much. Apparently patient he got out of bed and fell hitting his face, he was complaining of some dental pain. He had lower partial dentures. I do not see any loose teeth. Patient was following simple commands. Dr. Ruiz had evaluated and further workup has been ordered. Patient was admitted for evaluation and treatment. CBC/BMP: 12/25/16 0555 12/25/16 0555 Significant Findings Laboratory Tests Test 12/24/16 12/24/16 12/24/16 12/25/16 07:40 09:05 13:30 05:55 Red Blood Count 4.11 MIL/MM3 3.82 MIL/MM3 (4.50-5.90) (4.50-5.90) Hemoglobin 12.4 GM/DL 11.4 GM/DL (13.0-17.0) (13.0-17.0) Hematocrit 36.1 % 33.5 % (39.0-51.0) (39.0-51.0) Erythrocyte Sedimentation Rate 23 mm/hr (0-20) Chloride Level 108 MEQ/L 112 MEQ/L (98-107) (98-107) Blood Urea Nitrogen 21 MG/DL (7-18) Creatinine 1.49 MG/DL (0.60-1.30) Estimat Glomerular Filtration 50 ML/MIN (>89) 65 ML/MIN (>89) Rate Random Glucose 107 MG/DL 120 MG/DL (74-106) (74-106) Calcium Level 8.1 MG/DL 7.9 MG/DL (8.5-10.1) (8.5-10.1) Troponin I LESS THAN 0.02 NG/ML (0.02-0.05) Albumin 2.9 GM/DL (3.4-5.0) Urine Occult Blood TRACE (NEG) Thyroid Stimulating Hormone 4.170 uIU/ML 3rd Gen (0.358-3.740) Potassium Level 3.4 MEQ/L (3.5-5.1) Test 12/26/16 08:09 Arterial Blood pH 7.43 (7.380-7.420) Arterial Blood Partial 35 mmHg (38-42) Pressure CO2 Imaging Last Impressions Brain MRI 12/25/16 1121 Signed Impressions: Service Date/Time: Sunday, December 25, 2016 12:25 - CONCLUSION: 1. Examination quality degraded by motion artifact. However, no acute intracranial abnormality is identified. 2. There is moderate generalized cerebral atrophy. Jose Elias Casey MD Head CT 12/24/16 0740 Signed Impressions: Service Date/Time: Saturday, December 24, 2016 08:04 - CONCLUSION: No acute intracranial abnormality is identified. Jose Elias Casey MD PE at Discharge General Appearance: Well Developed, Well Nourished, No Acute Distress, Comfortable Eyes Eye Exam: Pupils Equal, Pupils Reactive Ears & Nose Ears & Nose Exam: Nasal Mucosa [place] Throat Throat Exam: Oral Mucosa [place] & Moist Neck Neck Exam: Neck Supple, Trachea Midline Pulmonary Resp Exam: Breath Sounds Equal Cardiology CV Exam: Regular, Good Perfusion Gastrointestinal/Abdomen GI Exam: Soft, Non-Tender, Bowel Sounds Present, Non-Distended Musculoskeletal MS Exam: Joints Intact Integumentary Skin Exam: Warm, Dry Extremeties Extremities Exam: No Edema, Pedal Pulses Palpable Neurologic Neuro Exam: Awake, Moving All Extremities VTE Prophylaxis VTE Prophylaxis Device: SCDs VTE Prophylaxis Meds: Heparin Hospital Course These are the diagnosis used to treat patient for his plan of care. (1) Seizure (2) Facial abrasion (3) Down syndrome (4) Acute renal injury (5) Hyperlipidemia Brief note 51-year-old male with history of Down syndrome and mental mental delay, presented to the emergency room after he was noted having what sounds like a grand mal seizure. -Neuro checks q 4hr , no acute changes noted -Seizure precautions throughout stay with medical issues -Bedrails to be padded, bed alarm to be put in place. If necessary we will use a sitter. -Continue with Keppra PO -Ativan when necessary for seizures, none noted EEG ordered,nad followed per neuro Neurology has been consulted, Dr. Schmidt has evaluated, his input appreciated. He recommends MRI of the brain, which was done. No acute issues. Will follow as OP as needed. -labs reviewed stable, B12 lab done Acute renal injury noted on adm. now resolved Continue with hydration -renal function now normal Heparin for DVT prophylaxis Dr. Kennedy saw patient and addded medical note for discharge. patient seen and examined just returned from MRI EEG done results pending no more seizures ok per neuro to d/c home with [facility], on po keppra, if MRI neg discussed with patient's nurse no family at bed side Please note patient is medically stable to return to all-day training program. Pt Condition on Discharge: Stable Discharge Disposition: [facility] with [facility] Discharge Instructions DIET: Follow Instructions for: Heart Healthy Diet Speech Therapy-Diet Recommends: Regular Activities you can perform: Weight Bearing as Thad Other Activity Instructions: SEIZURE PRECAUTIONS Follow up Referrals: Neurology - 1 Week with Иван Schmidt MD PCP Follow-up New Medications: ([levETIRAcetam]) 500 MG TAB 500 MG PO Q12HR Seizure Control #60 Ref 1 TAB Continued Medications: Ibuprofen (Ibuprofen) 600 Mg Tab 600 MG PO Q8HR PRN PAIN #30 Ref 0 TAB Ranitidine (Ranitidine) 150 Mg Cap 150 MG PO BID #60 Ref 0 CAP Simvastatin (Zocor) 20 Mg Tab 20 MG PO HS Cholesterol Management #30 Ref 0 TAB Naheed Ackerman December 26, 2016 16:10
[2016-12-26 17:50] LABS: ANA SCREEN NEG (NEG)
== END 2016-12-26 16:58 ==
LOC: NEPE 07:34 → NEDA 09:58 → NEPHCDU 11:29
PROVIDERS: ADMIT Internal Medicine; ATTEND Internal Medicine
DX: R56.9 Unspecified convulsions (principal); S00.81XA Abrasion of other part of head, initial encounter; N17.9 Acute kidney failure, unspecified; E78.5 Hyperlipidemia, unspecified; Q90.9 Down syndrome, unspecified; E87.6 Hypokalemia; R53.81 Other malaise; K21.9 Gastro-esophageal reflux disease without esophagitis; Z88.8 Allergy status to other drugs, medicaments and biological substances; W22.8XXA Striking against or struck by other objects, initial encounter
CPT/HCPCS: 36600; 70450; 70551; 80048; 80053; 81001; 82607; 82805; 82948; 84425; 84439; 84443; 84484; 85025; 85652; 86038; 86592; 92526; 92610; 93005; 95819; 96360; 97161; 99285; G0378; G8987; G8988; G8996; G8997; G8998; J1644; J1953; J2060; J7030; J7042

== ENCOUNTER 2017-09-10 11:32 | Observation (INO) | payer MEDICARE, OTHER ==
[~2017-09-10] VITALS: Ht 170.2 cm; Wt 70.0 kg
[~2017-09-10 11:32] MED LIST changes: -ACET325T PO; -ALAV10TA10 PO; -PROM25TA5 PO; +levETIRAcetam PO
[2017-09-10 11:41] VITALS: BP 103/66; PULSE 77; RESP 17; O2SAT 98
[2017-09-10] MEDS ORDERED: SODIUM CHLOR 0.9% 1000 ML INJ 1,000 ML IV SCH (11:46)
[2017-09-10 12:30] LABS: AUTOMATED NEUTROPHIL # 5.3 TH/MM3 (1.8-7.7); BASOPHIL % 0.5 % (0.0-2.0); EOSINOPHIL % 0.1 % (0.0-4.0); HEMATOCRIT 35.6 % (39.0-51.0); HEMOGLOBIN 12.5 GM/DL (13.0-17.0); LYMPH % 9.4 % (9.0-44.0); LYMPHOCYTE # 0.6 TH/MM3 (1.0-4.8); MEAN CELL VOLUME 91.1 FL (80.0-100.0); MEAN CORPUSCULAR HEMOGLOBIN 31.9 PG (27.0-34.0); MEAN PLATELET VOLUME 7.1 FL (7.0-11.0); MONO % 10.3 % (0.0-8.0); MONOCYTE # 0.7 TH/MM3 (0-0.9); NEUT % 79.7 % (16.0-70.0); PLATELET COUNT 212 TH/MM3 (150-450); RED BLOOD COUNT 3.91 MIL/MM3 (4.50-5.90); RED CELL DISTRIBUTION WIDTH 14.4 % (11.6-17.2); WHITE BLOOD COUNT 6.6 TH/MM3 (4.0-11.0)
--- NOTE | 2017-09-10 12:33 | RADRPT ---
EXAM DATE/TIME: 09/10/2017 12:08 [facility] COMPARISON: WRIST LEFT COMPLETE ([id number]), September 05, 2016, 23:56. INDICATIONS : Possible syncopal episode; AMS. MEDICAL HISTORY : Down syndrome. SURGICAL HISTORY : None. ENCOUNTER: Initial ACUITY: 1 day PAIN SCORE: Non-responsive. LOCATION: Bilateral chest FINDINGS: The heart is normal in size. There is mild chronic interstitial changes the pulmonary parenchyma. The lungs are otherwise clear. The mediastinal contours are within normal limits. The osseous structures are intact. CONCLUSION: 1. Chronic interstitial changes. No acute abnormality. Franco Nelson MD on September 10, 2017 at 12:29 Board Certified Radiologist. This report was verified electronically.
[2017-09-10 12:37] LABS: INTERNATIONAL NORMALIZED RATIO 1.1 RATIO; PROTHROMBIN TIME - PATIENT 11.6 SEC (9.8-11.6)
--- NOTE | 2017-09-10 12:38 | PD ---
HPI Chief Complaint: Altered Mental Status Time Seen by Provider: 11:57 Travel History International Travel<30 days: No Contact w/Intl Traveler<30days: No Traveled to known affect area: No History of Present Illness HPI 52-year-old male with a history of Down syndrome presents emerged from [facility] with altered mental status. According to [facility], patient was found laying face down in sand and with loss of consciousness for approximately 1 minute. States that his coworkers say he was lethargic this morning for an unknown reason. At the time of initial evaluation, medical history is unknown and limited information is gathered from the patient and rn field case manager. PFSH Past Medical History Blood Disorders: No Heart Rhythm Problems: No Cancer: No Cardiac Catheterization: No Cardiovascular Problems: Yes High Cholesterol: Yes Congestive Heart Failure: No Developmental Delay: Yes (DOWNS SYNDROME) Diabetes: No Diminished Hearing: No Endocrine: No Gastrointestinal Disorders: Yes (GERD) Immune Disorder: No Musculoskeletal: No Neurologic: Yes (down's syndrome) Psychiatric: No Reproductive: No Respiratory: No Tetanus Vaccination: Unknown ?: Not Past Surgical History Coronary Artery Bypass Graft: No Other Surgery: No Social History Alcohol Use: No Tobacco Use: No Substance Use: No Allergies-Medications (Allergen,Severity, Reaction): Coded Allergies: succinylcholine (Unverified Allergy, Unknown, 09/10/17) Reported Meds & Prescriptions Reported Meds & Active Scripts Active Ibuprofen 600 Mg Tab 600 Mg PO Q8HR PRN Reported Lamotrigine 100 Mg Tab 100 Mg PO BID Levothyroxine (Levothyroxine Sodium) 25 Mcg Tab 25 Mcg PO DAILY Claritin (Loratadine) 10 Mg Cap 10 Mg PO DAILY Zocor (Simvastatin) 20 Mg Tab 20 Mg PO HS Ranitidine (Ranitidine HCl) 150 Mg Cap 150 Mg PO BID Review of Systems Except as stated in HPI: all other systems reviewed are Neg Physical Exam Narrative GENERAL: Well-nourished, lethargic SKIN: Focused skin assessment warm/dry. HEAD: Atraumatic. Normocephalic. No areas of ecchymosis, skin is intact EYES: Pupils equal and round. No scleral icterus. No injection or drainage. ENT: No nasal bleeding or discharge. Mucous membranes pink and moist. No evidence of tongue biting NECK: Trachea midline. No JVD. No midline tenderness CARDIOVASCULAR: Regular rate and rhythm. No murmur appreciated. RESPIRATORY: No accessory muscle use. Clear to auscultation. Breath sounds equal bilaterally. GASTROINTESTINAL: Abdomen soft, non-tender, nondistended. Genitourinary-no edema, erythema, penile discharge. No obvious urinary incontinence MUSCULOSKELETAL: No obvious deformities. No clubbing. No cyanosis. No edema. NEUROLOGICAL: Awake. no obvious neuro deficits PSYCHIATRIC: Appropriate mood. Data Data Last Documented VS Vital Signs Date Time Temp Pulse Resp B/P (MAP) Pulse Ox O2 Delivery O2 Flow Rate FiO2 09/10/17 11:41 77 17 103/66 (78) 98 Orders Orders Electrocardiogram (09/10/17 11:46) Complete Blood Count With Diff (09/10/17 11:46) Comprehensive Metabolic Panel (09/10/17 11:46) Prothrombin Time / Inr (Pt) (09/10/17 11:46) Act Partial Throm Time (Ptt) (09/10/17 11:46) Troponin I (09/10/17 11:46) Urinalysis - C+S If Indicated (09/10/17 11:46) Chest, Single Ap (09/10/17 11:46) Ct Brain W/O Iv Contrast(Rout) (09/10/17 11:46) Ecg Monitoring (09/10/17 11:46) Iv Access Insert/Monitor (09/10/17 11:46) Cath For Specimen (09/10/17 11:46) Oximetry (09/10/17 11:46) Sodium Chlor 0.9% 1000 Ml Inj (Ns 1000 M (09/10/17 11:46) Thyroid Stimulating Hormone (09/10/17 12:02) Drug Screen, Random Urine (09/10/17 13:10) Sodium Chlor 0.9% 1000 Ml Inj (Ns 1000 M (09/10/17 16:00) Admit Order (Ed Use Only) (09/10/17 16:17) Labs Laboratory Tests Test 09/10/17 11:58 09/10/17 12:02 09/10/17 12:43 White Blood Count 6.6 TH/MM3 Red Blood Count 3.91 MIL/MM3 Hemoglobin 12.5 GM/DL Hematocrit 35.6 % Mean Corpuscular Volume 91.1 FL Mean Corpuscular Hemoglobin 31.9 PG Mean Corpuscular Hemoglobin Concent 35.0 % Red Cell Distribution Width 14.4 % Platelet Count 212 TH/MM3 Mean Platelet Volume 7.1 FL Neutrophils (%) (Auto) 79.7 % Lymphocytes (%) (Auto) 9.4 % Monocytes (%) (Auto) 10.3 % Eosinophils (%) (Auto) 0.1 % Basophils (%) (Auto) 0.5 % Neutrophils # (Auto) 5.3 TH/MM3 Lymphocytes # (Auto) 0.6 TH/MM3 Monocytes # (Auto) 0.7 TH/MM3 Eosinophils # (Auto) 0.0 TH/MM3 Basophils # (Auto) 0.0 TH/MM3 CBC Comment DIFF FINAL Differential Comment Prothrombin Time 11.6 SEC Prothromb Time International Ratio 1.1 RATIO Activated Partial Thromboplast Time 25.1 SEC Blood Urea Nitrogen 24 MG/DL Creatinine 1.77 MG/DL Random Glucose 106 MG/DL Total Protein 7.2 GM/DL Albumin 3.0 GM/DL Calcium Level 8.5 MG/DL Alkaline Phosphatase 79 U/L Aspartate Amino Transf (AST/SGOT) 20 U/L Alanine Aminotransferase (ALT/SGPT) 15 U/L Total Bilirubin 0.2 MG/DL Sodium Level 144 MEQ/L Potassium Level 4.4 MEQ/L Chloride Level 109 MEQ/L Carbon Dioxide Level 30.5 MEQ/L Anion Gap 5 MEQ/L Estimat Glomerular Filtration Rate 40 ML/MIN Troponin I LESS THAN 0.02 NG/ML Thyroid Stimulating Hormone 3rd Gen 4.610 uIU/ML Urine Color YELLOW Urine Turbidity CLEAR Urine pH 5.5 Urine Specific [place] 1.019 Urine Protein NEG mg/dL Urine Glucose (UA) NEG mg/dL Urine Ketones TRACE mg/dL Urine Occult Blood NEG Urine Nitrite NEG Urine Bilirubin NEG Urine Urobilinogen LESS THAN 2.0 MG/DL Urine Leukocyte Esterase NEG Urine RBC LESS THAN 1 /hpf Urine WBC LESS THAN 1 /hpf Microscopic Urinalysis Comment CATH-CULT NOT IND Urine Opiates Screen NEG Urine Barbiturates Screen NEG Urine Amphetamines Screen NEG Urine Benzodiazepines Screen NEG Urine Cocaine Screen NEG Urine Cannabinoids Screen NEG MDM Medical Decision Making Medical Screen Exam Complete: Yes Emergency Medical Condition: Yes Differential Diagnosis ICH, seizure, postictal state, sepsis, AMS, delirium Narrative Course This 52-year-old male with a history of Down syndrome, seizure disorder, and hypothyroidism presents to the emergency department [facility] with altered mental status being found down at work today. EVAC states he was initially hypertensive but responded well with 500 cc IV fluids. According to rn field case manager and congressional representative, patient had a loss of consciousness for a period of approximately 1 minute and he was found by his coworkers. Preceding that, coworker state that patient was lethargic and not being himself. Patient initially had GCS 11-12, improved to GCS 14 after 750cc IV fluids, oriented to self and seemingly inappropriate verbal response. He has no complaints of pain, fever, chills, chest pain, shortness of breath. Physical exam findings unremarkable. No evidence of trauma, tongue biting, or urinary incontinence. No evidence of illicit or other drug use. After speaking with a congressional representative, the patient was diagnosed with seizure activity last year and was placed on Keppra. In addition, his neurologist, Dr. Torres on he placed him on Aricept for 3 months but took them off because of the low blood pressure. Patient has apparently had chronic low blood pressure prior to Aricept. patient has been off this medication for 2 weeks. She describes occasional episodes of lethargy that last for approximately 5 minutes and go away. States that this episode has lasted longer and he has been more lethargic. EKG demonstrated sinus rhythm without STEMI changes. Last Impressions Head CT 09/10/17 1146 Signed Impressions: Service Date/Time: Sunday, September 10, 2017 12:18 - CONCLUSION: Stable noncontrast head CT. No acute finding is identified. There is stable moderate generalized atrophy. Jose Elias Casey MD Chest X-Ray 09/10/17 1146 Signed Impressions: Service Date/Time: Sunday, September 10, 2017 12:08 - CONCLUSION: 1. Chronic interstitial changes. No acute abnormality. Franco Nelson MD No leukocytosis present, stable anemia, cardiac enzymes negative, TSH 4.61 comparable to previous labs, no UTI present, negative tox screen. I suspect that patient has developed sundowners versus delirium versus seizure activity. I have low suspicion of illicit drug use. The congressional representative and rn field case manager seem to be a reliable source of information and I believe this patient should be admitted for observation and consult neuro. Book Reviewer states that patient normally is very functional works regularly and converses with his coworkers. Multiple reassessments demonstrates patient lethargic and I am concerned that if he goes back to his [facility] that he will worsen and be unable to perform ADLs which may be his demise. I spoke with Della on multiple occasions and asked if the patient was at his baseline. She states that patient is normally very active and very talkative, able to hold full conversations. States that he does not sleep as much as he has been sleeping today. Ly, his rn field case manager, has also been involved extensively and provide a wealth of information. Patient should be admitted for observation for monitoring and stability. Consult neuro. Diagnosis Primary Impression: Altered mental status Qualified Codes: R41.0 - Disorientation, unspecified Admitting Information Admitting Physician Requests: Observation Condition: Stable Magdalena Jimenez Sep 10, 2017 12:38
[2017-09-10] MEDS ORDERED: LAMO100T PO (12:52)
[2017-09-10] MEDS ORDERED: LEVO25TA4 PO (12:52)
[2017-09-10] MEDS ORDERED: CLAR10CA3 PO (12:52)
[2017-09-10 13:01] LABS: BILIRUBIN, URINE NEG (NEG); BLOOD, URINE NEG (NEG); GLUCOSE,URINE NEG (NEG); KETONE, URINE TRACE mg/dL (NEG); NITRITE,URINE NEG (NEG); PH, URINE 5.5 (5.0-8.5); URINE COLOR YELLOW (YELLW/STRAW); URINE LEUKOCYTE ESTERASE NEG (NEG)
--- NOTE | 2017-09-10 13:04 | RADRPT ---
EXAM DATE/TIME: 09/10/2017 12:18 [facility] COMPARISON: CT BRAIN W/O CONTRAST, December 24, 2016, 8:04. INDICATIONS : Patient found unconscious, face down on the ground. Altered mental status. RADIATION DOSE: 56.35 CTDIvol (mGy) MEDICAL HISTORY : Cardiovascular disease. Gastroesophageal reflux disease. Down Syndrome SURGICAL HISTORY : None. ENCOUNTER: Initial ACUITY: 1 day PAIN SCALE: 0/10 LOCATION: cranial TECHNIQUE: Multiple contiguous axial images were obtained of the head. Using automated exposure control and adj ustment of the mA and/or kV according to patient size, radiation dose was kept as low as reasonably a chievable to obtain optimal diagnostic quality images. DICOM format image data is available electro nically for review and comparison. FINDINGS: CEREBRUM: There is moderate generalized atrophy. Ventricles are normal in size given the degree of atrophy. No evidence of midline shift, mass lesion, hemorrhage or acute infarction. No extra-axial fluid collec tions are seen. POSTERIOR FOSSA: The cerebellum and brainstem are intact. The 4th ventricle is midline. The cerebellopontine angle i s unremarkable. EXTRACRANIAL: There is a stable volume loss and opacification of the left maxillary sinus. SKULL: The calvaria is intact. No evidence of skull fracture. CONCLUSION: Stable noncontrast head CT. No acute finding is identified. There is stable moderate generalized atro phy. Jose Elias Casey MD on September 10, 2017 at 12:59 Board Certified Radiologist. This report was verified electronically.
[2017-09-10 13:10] LABS: ALKALINE PHOSPHATASE 79 U/L (45-117); ALT (GPT) 15 U/L (12-78); AST (GOT) 20 U/L (15-37); BICARBONATE 30.5 MEQ/L (21.0-32.0); BLOOD UREA NITROGEN 24 MG/DL (7-18); CALCIUM 8.5 MG/DL (8.5-10.1); CHLORIDE 109 MEQ/L (98-107); CREATININE 1.77 MG/DL (0.60-1.30); GLOMERULAR FILTRATION RATE 40 ML/MIN (>89); GLUCOSE,RANDOM 106 MG/DL (74-106); SODIUM (NA) 144 MEQ/L (136-145); TOTAL BILIRUBIN ADULT 0.2 MG/DL (0.2-1.0); TOTAL PROTEIN 7.2 GM/DL (6.4-8.2); TROPONIN I LESS THAN 0.02 NG/ML (0.02-0.05)
[2017-09-10] MEDS ORDERED: SODIUM CHLOR 0.9% 1000 ML INJ 1,000 ML IV ONE (16:00)
--- NOTE | 2017-09-10 17:13 | HHI.HP ---
[facility] Kodi [facility]illan, Admission Diagnosis AMS, delirium Diagnoses: (1) Altered mental status (2) Down syndrome Travel History International Travel<30 Days: No Contact w/Intl Traveler <30 Da: No Traveled to Known Affected Are: No History of Present Illness 52M with h/o Down's Syndrome, Hypotension and Seizure Disorder (dx 2017) was found face down in the sand today following an unwitnessed event. He was lethargic at the time and unable to relay any information about what happened. EMS on arrival did not know he had a history of seizure disorder, or hypotension , so it was assumed his LOC was related to hypotension and he was given a bag of IVF, but no benzodiazepines. He has been mostly sleepy here, awakens with attention-getting methods (such as a straight cath), but otherwise smiles while having a brief interaction, then falls back asleep. He is not a noteworthy historian, but his nurse was able to provide a good account of the events leading up to his arrival. Review of Systems ROS Limitations: Clinical Condition, Altered Mental Status, Poor Historian, Other Constitutional: DENIES: Fever Respiratory: DENIES: Apneas, Cough, Shortness of breath Cardiovascular: DENIES: Chest pain Hematologic/lymphatic: DENIES: Bruising Immunologic/allergic: DENIES: Eczema, Urticaria Neurologic: COMPLAINS OF: Seizures, DENIES: Localized weakness Psychiatric: COMPLAINS OF: Confusion ROS was unable to be fully obtained due to Down Syndrome and Lethargy contributing to his poor historian status. Past Family Social History Past Medical History Downs Syndrome Seizure Disorder Hypotension Hyperlipidemia Heart Disease (not specified) Past Surgical History No record of surgery Allergies: Coded Allergies: succinylcholine (Unverified Allergy, Unknown, 09/10/17) Family History Unknown Social History No Smoking, No alcohol use Physical Exam Vital Signs Vital Signs Date Time Temp Pulse Resp B/P (MAP) Pulse Ox O2 Delivery O2 Flow Rate FiO2 09/10/17 11:41 77 17 103/66 (78 98 Physical Exam GENERAL: This is a well-nourished patient with down's syndrome, no obvious injuries, sleepy/lethargic (post-ictal?) SKIN: No rashes, ecchymoses or lesions. Cool and dry. HEAD: Atraumatic. Normocephalic. No temporal or scalp tenderness. EYES: Pupils equal round and reactive. Extraocular motions intact. No scleral icterus. No injection or drainage. ENT: Nose without bleeding, purulent drainage or septal hematoma. Throat without erythema, tonsillar hypertrophy or exudate. Uvula midline. Airway patent. NECK: Trachea midline. No JVD or lymphadenopathy. Supple, nontender, no meningeal signs. CARDIOVASCULAR: Regular rate and rhythm without murmurs, gallops, or rubs. RESPIRATORY: Clear to auscultation. Breath sounds equal bilaterally. No wheezes , rales, or rhonchi. GASTROINTESTINAL: Abdomen soft, non-tender, nondistended. No hepato-splenomegaly , or palpable masses. No guarding. MUSCULOSKELETAL: Extremities without clubbing, cyanosis, or edema. No joint tenderness, effusion, or edema noted. No calf tenderness. Negative Homans sign bilaterally. NEUROLOGICAL: Sleepy/Lethargic but able to be awakened. Cranial nerves II through XII intact. Motor and sensory grossly within normal limits. Normal speech. Laboratory Laboratory Tests Test 09/10/17 11:58 09/10/17 12:02 09/10/17 12:43 White Blood Count 6.6 Red Blood Count 3.91 Hemoglobin 12.5 Hematocrit 35.6 Mean Corpuscular Volume 91.1 Mean Corpuscular Hemoglobin 31.9 Mean Corpuscular Hemoglobin Concent 35.0 Red Cell Distribution Width 14.4 Platelet Count 212 Mean Platelet Volume 7.1 Neutrophils (%) (Auto) 79.7 Lymphocytes (%) (Auto) 9.4 Monocytes (%) (Auto) 10.3 Eosinophils (%) (Auto) 0.1 Basophils (%) (Auto) 0.5 Neutrophils # (Auto) 5.3 Lymphocytes # (Auto) 0.6 Monocytes # (Auto) 0.7 Eosinophils # (Auto) 0.0 Basophils # (Auto) 0.0 CBC Comment DIFF FINAL Differential Comment Prothrombin Time 11.6 Prothromb Time International Ratio 1.1 Activated Partial Thromboplast Time 25.1 Blood Urea Nitrogen 24 Creatinine 1.77 Random Glucose 106 Total Protein 7.2 Albumin 3.0 Calcium Level 8.5 Alkaline Phosphatase 79 Aspartate Amino Transf (AST/SGOT) 20 Alanine Aminotransferase (ALT/SGPT) 15 Total Bilirubin 0.2 Sodium Level 144 Potassium Level 4.4 Chloride Level 109 Carbon Dioxide Level 30.5 Anion Gap 5 Estimat Glomerular Filtration Rate 40 Troponin I LESS THAN 0.02 Thyroid Stimulating Hormone 3rd Gen 4.610 Urine Color YELLOW Urine Turbidity CLEAR Urine pH 5.5 Urine Specific [place] 1.019 Urine Protein NEG Urine Glucose (UA) NEG Urine Ketones TRACE Urine Occult Blood NEG Urine Nitrite NEG Urine Bilirubin NEG Urine Urobilinogen LESS THAN 2.0 Urine Leukocyte Esterase NEG Urine RBC LESS THAN 1 Urine WBC LESS THAN 1 Microscopic Urinalysis Comment CATH-CULT NOT IND Result Diagram: 09/10/17 1158 09/10/17 1158 Imaging Last [address] 09/10/17 1146 Signed Impressions: Service Date/Time: Sunday, September 10, 2017 12:18 - CONCLUSION: Stable noncontrast head CT. No acute finding is identified. There is stable moderate generalized atrophy. Jose Elias Casey MD Chest X-Ray 09/10/17 1146 Signed Impressions: Service Date/Time: Sunday, September 10, 2017 12:08 - CONCLUSION: 1. Chronic interstitial changes. No acute abnormality. Franco Nelson MD Caprini VTE Risk Assessment Caprini VTE Risk Assessment: Mod/High Risk (score >= 2) Caprini Risk Assessment Model Point Value = 1 Point Value = 2 Point Value = 3 Point Value = 5 Age 41-60 Minor surgery BMI > 25 kg/m2 Swollen legs Varicose veins or History of unexplained or recurrent spontaneous Oral contraceptives or hormone replacement Sepsis (< 1 month) Serious lung disease, including pneumonia (< 1 month) Abnormal pulmonary function Acute myocardial infarction Congestive heart failure (< 1 month) History of inflammatory bowel disease Medical patient at bed rest Age 61-74 Arthroscopic surgery Major open surgery (> 45 min) Laparoscopic surgery (> 45 min) Malignancy Confined to bed (> 72 hours) Immobilizing plaster cast Central venous access Age >= 75 History of VTE Family history of VTE Factor V Leiden Prothrombin [id number] Lupus anticoagulant Anticardiolipin antibodies Elevated serum homocysteine Heparin-induced thrombocytopenia Other congenital or acquired thrombophilia Stroke (< 1 month) Elective arthroplasty Hip, pelvis, or leg fracture Acute spinal cord injury (< 1 month) Prophylaxis Regimen Total Risk Factor Score Risk Level Prophylaxis Regimen 0-1 Low Early ambulation 2 Moderate Order ONE of the following: *Sequential Compression Device (SCD) *Heparin 5000 units SQ BID 3-4 Higher Order ONE of the following medications: *Heparin 5000 units SQ TID *Enoxaparin/Lovenox 40 mg SQ daily (WT < 150 kg, CrCl > 30 mL/min) *Enoxaparin/Lovenox 30 mg SQ daily (WT < 150 kg, CrCl > 10-29 mL/min) *Enoxaparin/Lovenox 30 mg SQ BID (WT < 150 kg, CrCl > 30 mL/min) AND/OR *Sequential Compression Device (SCD) 5 or more Highest Order ONE of the following medications: *Heparin 5000 units SQ TID (Preferred with Epidurals) *Enoxaparin/Lovenox 40 mg SQ daily (WT < 150 kg, CrCl > 30 mL/min) *Enoxaparin/Lovenox 30 mg SQ daily (WT < 150 kg, CrCl > 10-29 mL/min) *Enoxaparin/Lovenox 30 mg SQ BID (WT < 150 kg, CrCl > 30 mL/min) AND *Sequential Compression Device (SCD) Assessment and Plan Problem List: (1) Altered mental status ICD Code: R41.82 - Altered mental status, unspecified Status: Acute (2) Down syndrome ICD Code: Q90.9 - Down syndrome, unspecified Status: Acute Assessment and Plan Altered Mental Status with h/o Seizure Disorder LOC, found down, confused, etc. is highly suspect for seizure, but no seizure witnessed He has had no seizure activity since arrival No signs of infection, low risk for drug involvement Will place on Seizure precautions Follow on cardiac telemetry Continue Keppra Ativan 2mg IV PRN if a witnessed seizure occurs Neurology consult h/o Hypotension Baseline is around 90 systolic h/o Down's Syndrome 52 year old with Downs Syndrome Consider cardiac risks, admit to telemetry h/o Dementia Previously on Aricept, no longer taking it due to seizures starting in 2017 DVT Prophylaxis SCD Hose Problem Qualifiers (1) Altered mental status: Qualified Codes: R41.0 - Disorientation, unspecified Hunter Agee MD Sep 10, 2017 17:12
[2017-09-10] MEDS ORDERED: BISACODYL 10 MG SUPP RECTAL PRN (17:15)
[2017-09-10] MEDS ORDERED: SODIUM CHLORIDE 0.9% FLUSH 10 ML FLUSH IV FLUSH PRN (17:15)
[2017-09-10] MEDS ORDERED: NALOXONE HCL 0.4 MG/ML AMP IV PUSH PRN (17:15)
[2017-09-10] MEDS ORDERED: MAGNESIUM HYDROXIDE SUSP 30 ML CUP PO PRN (17:15)
[2017-09-10] MEDS ORDERED: SENNOSIDES 8.6 MG TAB PO PRN (17:15)
[2017-09-10] MEDS ORDERED: LACTULOSE SYRUP 20 GM/30 ML CUP PO PRN (17:15)
[2017-09-10 17:27] VITALS: BP 88/55; PULSE 67; RESP 18; TEMP 98.4; O2SAT 99
[2017-09-10] MEDS ORDERED: LORazepam 2 MG/ML VIAL IM PRN (17:30)
[2017-09-10 20:00] VITALS: PULSE 60
[2017-09-10 20:47] VITALS: BP 89/49; PULSE 54; RESP 18; TEMP 97.9; O2SAT 97
[2017-09-10] MEDS: lamoTRIgine 100 MG TAB PO SCH (22:37)
[2017-09-10] MEDS: SODIUM CHLORIDE 0.9% FLUSH 10 ML FLUSH IV FLUSH SCH (23:53)
[2017-09-11] VITALS (12 sets, daily range): BP systolic 92–131; BP diastolic 53–74; PULSE 60–88; RESP 16–18; TEMP 97.7–98.8; O2SAT 96–98
[2017-09-11 04:07] LABS: BASOPHIL % 0.9 % (0.0-2.0); EOSINOPHIL % 0.2 % (0.0-4.0); HEMATOCRIT 39.2 % (39.0-51.0); HEMOGLOBIN 13.5 GM/DL (13.0-17.0); LYMPH % 36.6 % (9.0-44.0); LYMPHOCYTE # 1.4 TH/MM3 (1.0-4.8); MEAN CELL VOLUME 91.2 FL (80.0-100.0); MEAN CORPUSCULAR HEMOGLOBIN 31.4 PG (27.0-34.0); MEAN CORPUSCULAR HGB CONC 34.5 % (32.0-36.0); MEAN PLATELET VOLUME 7.2 FL (7.0-11.0); MONO % 11.4 % (0.0-8.0); MONOCYTE # 0.4 TH/MM3 (0-0.9); NEUT % 50.9 % (16.0-70.0); PLATELET COUNT 246 TH/MM3 (150-450); RED BLOOD COUNT 4.29 MIL/MM3 (4.50-5.90); RED CELL DISTRIBUTION WIDTH 14.3 % (11.6-17.2)
[2017-09-11 04:17] LABS: BICARBONATE 28.3 MEQ/L (21.0-32.0); CALCIUM 8.5 MG/DL (8.5-10.1); CREATININE 1.38 MG/DL (0.60-1.30)
[2017-09-11] MEDS: LEVOTHYROXINE SODIUM 25 MCG TAB PO SCH (05:55)
--- NOTE | 2017-09-11 08:31 | MB ---
cc: JOHN ALAN M.D. DATE OF CONSULTATION 09/11/2017 REASON FOR CONSULTATION This is a 52-year-old male with a history of Downs syndrome and yesterday found head down on the sand and there was some lethargy. The patient was brought to the hospital and has been stable. Nursing staff admits that he was quite stable throughout the night, no lethargy and no syncope and no seizure activity documented. Again, there is history of Downs syndrome. MEDICATIONS His medications include: 1. Lamotrigine 100 b.i.d. 2. Levothyroxine 3. Claritin 4. Zocor 5. Ranitidine PHYSICAL EXAM On exam, he was asleep, apparently stayed awake most of the night when I saw him with the RN. He opposed strongly when I attempted to open the eyes. He moves all four extremities when stimulated, but essentially stayed asleep and started mumbling some words when I tried to awaken him. His reflexes were present including the ankles, plantar responses appeared to be flexor bilaterally. CT brain showed atrophy. LABORATORY DATA Reviewed. CBC today is essentially unremarkable. Negative toxicology. Chemistry with a creatinine 1.77 yesterday and 1.38 today, BUN 24 yesterday and 16 today. Sodium and potassium normal. Glucose normal. ASSESSMENT Possible seizure yesterday and further reviewing the available data, there is a description of a seizure disorder and he might have been on Keppra. Continue on the lamotrigine, but increase the dose to 100 mg three times a day. We will gather more history about any use of Keppra or not. It appears that he had been followed by neurologist Dr. Schneider. His CT of the brain showed no acute abnormality and is probably back to baseline. An EEG is pending. Thank you for asking us to assist in his care. MD SHARIF Mckinney/VIRIDIANA /7:11 AM /8:13 AM
[2017-09-11] MEDS: lamoTRIgine 100 MG TAB PO SCH ×3 (10:04→20:55)
[2017-09-11] MEDS: SODIUM CHLORIDE 0.9% FLUSH 10 ML FLUSH IV FLUSH SCH ×2 (10:05→20:55)
--- NOTE | 2017-09-11 15:46 | HHI.PR ---
Subjective Remarks Patient seen this afternoon around 2 PM. Says he is feeling all right. Denies any pain. Objective Vital Signs Date Time Temp Pulse Resp B/P (MAP) Pulse Ox O2 Delivery O2 Flow Rate FiO2 09/11/17 12:00 65 09/11/17 07:32 98.1 60 16 106/66 (79) 96 09/11/17 07:25 74 09/11/17 06:00 98.0 74 18 131/74 (93) 96 09/11/17 04:47 86 09/11/17 01:20 98.8 84 18 92/56 (68) 98 09/11/17 00:00 62 09/10/17 20:47 97.9 54 18 89/49 (62) 97 09/10/17 20:00 60 09/10/17 17:27 98.4 67 18 88/55 (66) 99 I/O 09/10/17 09/10/17 09/10/17 09/11/17 09/11/17 09/11/17 07:00 15:00 23:00 07:00 15:00 23:00 Intake Total 1000 ml 1000 ml Output Total 800 ml Balance 1000 ml 1000 ml -800 ml Intake IV Total 1000 ml 1000 ml Output Urine Total 800 ml Result Diagram: 09/11/17 03309/11/17 0330 Objective Remarks GENERAL: Patient sitting up in bed. Appears comfortable. SKIN: Warm and dry. HEAD: Normocephalic. EYES: No scleral icterus. No injection or drainage. NECK: Supple, trachea midline. No JVD. CARDIOVASCULAR: Regular rate and rhythm without murmurs, gallops, or rubs. RESPIRATORY: Breath sounds equal bilaterally. No accessory muscle use. GASTROINTESTINAL: Abdomen soft, non-tender, nondistended. MUSCULOSKELETAL: No cyanosis, or edema. BACK: Nontender without obvious deformity. No CVA tenderness. A/P Assessment and Plan //Altered Mental Status with h/o Seizure Disorder LOC, found down, confused, etc. is highly suspect for seizure, but no seizure witnessed He has had no seizure activity since arrival No signs of infection, low risk for drug involvement Will place on Seizure precautions Follow on cardiac telemetry Continue Keppra Ativan 2mg IV PRN if a witnessed seizure occurs Neurology consult = Await electroencephalogram results. Appreciate neurology assistance. Continue close monitoring. //h/o Hypotension Baseline is around 90 systolic //h/o Down's Syndrome 52 year old with Downs Syndrome Consider cardiac risks, admit to telemetry = Continue to monitor on telemetry. //h/o Dementia Previously on Aricept, no longer taking it due to seizures starting in 2017 DVT Prophylaxis SCD Hose Discharge Planning Pending electroencephalogram Pending neurology clearance. Faraz Irene MD Sep 11, 2017 15:46
--- NOTE | 2017-09-11 16:55 | MG ---
cc: CARLI PARISH M.D. Lab No: Date: 09/11/2017 Age: Sex: M Race: TEST NUMBER [id number] TECHNIQUE 17 channel EEG. DESCRIPTION The background rhythm reveals a symmetrical alpha rhythm. Frequency is 8-9 Hz. Amplitude is 10-20 microvolts. During drowsiness there is some slowing in the theta range. There are no lateralizing features. No epileptiform discharges are present. There is some muscle artifact present. INTERPRETATION There initially is a normal alpha rhythm, the latter part of the tracing has slowing, probably related to drowsiness. Overall probably normal EEG. MD NOLAN Rae/NORBERTO /3:13 PM /4:39 PM
--- NOTE | 2017-09-11 22:19 | EKG ---
Date Performed: 09/10/2017 Time Performed: 11:44:06 PTAGE: 52 years EKG: Sinus rhythm NORMAL ECG PREVIOUS TRACING : 12/24/2016 07.58 Since the prior tracing, there has been no significant sullivan DOCTOR: Krish Brown Interpretating Date/Time 09/11/2017 22:17:10
[2017-09-12 03:59] VITALS: BP 98/58; PULSE 64; RESP 18; TEMP 98.7; O2SAT 98
[2017-09-12 04:00] VITALS: PULSE 92
[2017-09-12] MEDS: lamoTRIgine 100 MG TAB PO SCH ×2 (05:44→13:56)
[2017-09-12] MEDS: LEVOTHYROXINE SODIUM 25 MCG TAB PO SCH (05:44)
[2017-09-12 07:30] VITALS: BP 100/64; PULSE 90; RESP 16; O2SAT 94
[2017-09-12 07:31] VITALS: PULSE 90
[2017-09-12] MEDS: SODIUM CHLORIDE 0.9% FLUSH 10 ML FLUSH IV FLUSH SCH (09:00)
[2017-09-12 09:27] VITALS: PULSE 82
[2017-09-12] MEDS ORDERED: LAMO100T PO (09:46)
[2017-09-12 12:30] VITALS: PULSE 92
--- NOTE | 2017-09-12 16:49 | HHI.PR ---
Subjective Remarks Patient seen this morning around 9 AM. Says he is feeling all right. No acute changes per nursing. Objective Vital Signs Date Time Temp Pulse Resp B/P (MAP) Pulse Ox O2 Delivery O2 Flow Rate FiO2 09/12/17 12:30 92 09/12/17 09:27 82 09/12/17 07:31 90 09/12/17 07:30 90 16 100/64 (76) 94 09/12/17 04:00 92 09/12/17 03:59 98.7 64 18 98/58 (71) 98 09/11/17 23:55 87 09/11/17 20:25 98.0 68 18 107/58 (74) 97 09/11/17 20:01 88 I/O 09/11/17 09/11/17 09/11/17 09/12/17 09/12/17 09/12/17 07:00 15:00 23:00 07:00 15:00 23:00 Output Total 800 ml Balance -800 ml Output Urine Total 800 ml # Voids 1 Result Diagram: 09/11/17 03309/11/17 033 Objective Remarks GENERAL: Patient sitting up in bed. Appears comfortable. No changes on exam. SKIN: Warm and dry. HEAD: Normocephalic. EYES: No scleral icterus. No injection or drainage. NECK: Supple, trachea midline. No JVD. CARDIOVASCULAR: Regular rate and rhythm without murmurs, gallops, or rubs. RESPIRATORY: Breath sounds equal bilaterally. No accessory muscle use. GASTROINTESTINAL: Abdomen soft, non-tender, nondistended. MUSCULOSKELETAL: No cyanosis, or edema. BACK: Nontender without obvious deformity. No CVA tenderness. A/P Assessment and Plan //Altered Mental Status with h/o Seizure Disorder LOC, found down, confused, etc. is highly suspect for seizure, but no seizure witnessed He has had no seizure activity since arrival No signs of infection, low risk for drug involvement Will place on Seizure precautions Follow on cardiac telemetry Continue Keppra Ativan 2mg IV PRN if a witnessed seizure occurs Neurology consult = Await electroencephalogram results. Appreciate neurology assistance. Continue close monitoring. = EEG without seizure activity. Patient cleared by neurology. Appreciate assistance. Increased dose of antiepileptics. //h/o Hypotension Baseline is around 90 systolic //h/o Down's Syndrome 52 year old with Downs Syndrome Consider cardiac risks, admit to telemetry = Continue to monitor on telemetry. //h/o Dementia Previously on Aricept, no longer taking it due to seizures starting in 2017 DVT Prophylaxis SCD Hose Discharge Planning Patient cleared by neurology for discharge. Increased dose of antiepileptic. Faraz Irene MD Sep 12, 2017 16:49
--- NOTE | 2017-09-12 16:51 | HHI.DS ---
Discharge Summary Admission Date Sep 10, 2017 at 16:19 Discharge Date: Sep 12, 2017 Admitting Diagnosis AMS, delirium (1) Altered mental status ICD Code: R41.82 - Altered mental status, unspecified Status: Acute (2) Down syndrome ICD Code: Q90.9 - Down syndrome, unspecified Status: Acute Procedures eeg Brief History - From Admission 52M with h/o Down's Syndrome, Hypotension and Seizure Disorder (dx 2017) was found face down in the sand today following an unwitnessed event. He was lethargic at the time and unable to relay any information about what happened. EMS on arrival did not know he had a history of seizure disorder, or hypotension , so it was assumed his LOC was related to hypotension and he was given a bag of IVF, but no benzodiazepines. He has been mostly sleepy here, awakens with attention-getting methods (such as a straight cath), but otherwise smiles while having a brief interaction, then falls back asleep. He is not a noteworthy historian, but his nurse was able to provide a good account of the events leading up to his arrival. CBC/BMP: 09/11/17 0330 09/11/17 0330 Significant Findings Laboratory Tests Test 09/10/17 11:58 09/10/17 12:02 09/10/17 12:43 09/10/17 20:34 Red Blood Count 3.91 MIL/MM3 (4.50-5.90) Hemoglobin 12.5 GM/DL (13.0-17.0) Hematocrit 35.6 % (39.0-51.0) Neutrophils (%) (Auto) 79.7 % (16.0-70.0) Monocytes (%) (Auto) 10.3 % (0.0-8.0) Lymphocytes # (Auto) 0.6 TH/MM3 (1.0-4.8) Blood Urea Nitrogen 24 MG/DL (7-18) Creatinine 1.77 MG/DL (0.60-1.30) Albumin 3.0 GM/DL (3.4-5.0) Chloride Level 109 MEQ/L (98-107) Estimat Glomerular Filtration Rate 40 ML/MIN (>89) Troponin I LESS THAN 0.02 NG/ML Thyroid Stimulating Hormone 3rd Gen 4.610 uIU/ML (0.358-3.740) Urine Ketones TRACE mg/dL (NEG) Test 09/11/17 03:30 Red Blood Count 4.29 MIL/MM3 (4.50-5.90) Monocytes (%) (Auto) 11.4 % (0.0-8.0) Creatinine 1.38 MG/DL (0.60-1.30) Estimat Glomerular Filtration Rate 54 ML/MIN (>89) Imaging Last Impressions Head CT 09/10/17 1146 Signed Impressions: Service Date/Time: Sunday, September 10, 2017 12:18 - CONCLUSION: Stable noncontrast head CT. No acute finding is identified. There is stable moderate generalized atrophy. Jose Elias Casey MD Chest X-Ray 09/10/17 1146 Signed Impressions: Service Date/Time: Sunday, September 10, 2017 12:08 - CONCLUSION: 1. Chronic interstitial changes. No acute abnormality. Franco Nelson MD Hospital Course Head CT on admission with no acute changes. Chest x-ray with no changes. EEG was performed on hospital day 1 and did not show any seizure activity. Neurology was consulted, has increased patient's dose of lamotrigine. Patient doing well, was discharged to detention. Follow-up with neurology as outpatient. For problem-based summary from most recent progress note, please see below. //Altered Mental Status with h/o Seizure Disorder LOC, found down, confused, etc. is highly suspect for seizure, but no seizure witnessed He has had no seizure activity since arrival No signs of infection, low risk for drug involvement Will place on Seizure precautions Follow on cardiac telemetry Continue Keppra Ativan 2mg IV PRN if a witnessed seizure occurs Neurology consult = Await electroencephalogram results. Appreciate neurology assistance. Continue close monitoring. = EEG without seizure activity. Patient cleared by neurology. Appreciate assistance. Increased dose of antiepileptics. //h/o Hypotension Baseline is around 90 systolic //h/o Down's Syndrome 52 year old with Downs Syndrome Consider cardiac risks, admit to telemetry = Continue to monitor on telemetry. //h/o Dementia Previously on Aricept, no longer taking it due to seizures starting in 2017 DVT Prophylaxis SCD Hose Discharge Planning Patient cleared by neurology for discharge. Increased dose of antiepileptic. Pt Condition on Discharge: Good Discharge Disposition: Discharge Home Discharge Time: > 30 minutes Discharge Instructions DIET: Follow Instructions for: As Tolerated, No Restrictions Activities you can perform: Regular-No Restrictions Follow up Referrals: Neurology - 1 Week with Manuel Scnheider M.d. PCP Follow-up - 1 Week with Kodi Santillan DO Changed Medications: Lamotrigine (Lamotrigine) 100 Mg Tab 100 MG PO TID for Control Seizures for 30 Days, #60 TAB 0 Refills (Changed from : BID) Continued Medications: Levothyroxine (Levothyroxine) 25 Mcg Tab 25 MCG PO DAILY for Thyroid, #30 TAB 0 Refills Loratadine (Claritin) 10 Mg Cap 10 MG PO DAILY for Allergy Management, CAP 0 Refills Ranitidine (Ranitidine) 150 Mg Cap 150 MG PO BID, #60 CAP 0 Refills Simvastatin (Zocor) 20 Mg Tab 20 MG PO HS for Cholesterol Management, #30 TAB 0 Refills Discontinued Medications: Ibuprofen (Ibuprofen) 600 Mg Tab 600 MG PO Q8HR PRN for PAIN, #30 TAB 0 Refills Faraz Irene MD Sep 12, 2017 16:51
--- NOTE | 2017-09-12 19:24 | HHI.PR ---
Review/Management Daily Summary 09/12 I saw him early this am, around 6:30 spoke with his RN and he had a good night ok"d to d/c on lamotrigine 100 tid Subjective Subjective Comments No acute events reported No headache Allergies Allergies Coded Allergies succinylcholine (Unverified Allergy, Unknown, 09/10/17) Exam I&O / VS Vital Signs Date Time Temp Pulse Resp B/P (MAP) Pulse Ox O2 Delivery O2 Flow Rate FiO2 09/12/17 12:30 92 09/12/17 09:27 82 09/12/17 07:31 90 09/12/17 07:30 90 16 100/64 (76) 94 09/12/17 04:00 92 09/12/17 03:59 98.7 64 18 98/58 (71) 98 09/11/17 23:55 87 09/11/17 20:25 98.0 68 18 107/58 (74) 97 09/11/17 20:01 88 Brett Vasquez MD Sep 12, 2017 19:24
== END 2017-09-12 14:47 | disposition home or self-care (01) ==
LOC: NEPC 11:32 → NEDA 16:19 → NEPGCP 17:16
PROVIDERS: ADMIT Internal Medicine; ATTEND Internal Medicine
DX: R41.82 Altered mental status, unspecified (principal); I95.9 Hypotension, unspecified; Q90.9 Down syndrome, unspecified; F03.90 Unspecified dementia, unspecified severity, without behavioral disturbance, psychotic disturbance, mood disturbance, and anxiety; G40.909 Epilepsy, unspecified, not intractable, without status epilepticus; E78.5 Hyperlipidemia, unspecified; K21.9 Gastro-esophageal reflux disease without esophagitis; E03.9 Hypothyroidism, unspecified; I51.9 Heart disease, unspecified; R53.83 Other fatigue; R55 Syncope and collapse
CPT/HCPCS: 70450; 71045; 80048; 80053; 80307; 81001; 82550; 84443; 84484; 85025; 85610; 85730; 93005; 95819; 96360; 96361; 99285; G0378; J7030

== ENCOUNTER 2017-09-12 21:03 | Observation (INO) | payer MEDICARE, OTHER ==
[~2017-09-12] VITALS: Ht 162.6 cm; Wt 57.8 kg
[~2017-09-12 21:03] MED LIST changes: +CLAR10CA3 PO; +LAMO100T PO; +LEVO25TA4 PO; -levETIRAcetam PO
[2017-09-12 21:05] VITALS: BP 97/64; PULSE 80; RESP 20; TEMP 99.5; O2SAT 96
[2017-09-12] MEDS ORDERED: SODIUM CHLOR 0.9% 1000 ML INJ 1,000 ML IV SCH (21:09)
[2017-09-12] MEDS ORDERED: SODIUM CHLORIDE 0.9% FLUSH 10 ML FLUSH IV FLUSH PRN ×2 (21:15→23:15)
[2017-09-12 21:31] LABS: AUTOMATED NEUTROPHIL # 3.9 TH/MM3 (1.8-7.7); BASOPHIL % 0.6 % (0.0-2.0); EOSINOPHIL % 0.2 % (0.0-4.0); HEMATOCRIT 41.8 % (39.0-51.0); HEMOGLOBIN 13.7 GM/DL (13.0-17.0); LYMPH % 20.5 % (9.0-44.0); LYMPHOCYTE # 1.2 TH/MM3 (1.0-4.8); MEAN CELL VOLUME 91.3 FL (80.0-100.0); MEAN CORPUSCULAR HGB CONC 32.8 % (32.0-36.0); MEAN PLATELET VOLUME 6.9 FL (7.0-11.0); MONO % 9.9 % (0.0-8.0); MONOCYTE # 0.6 TH/MM3 (0-0.9); NEUT % 68.8 % (16.0-70.0); PLATELET COUNT 290 TH/MM3 (150-450); RED BLOOD COUNT 4.58 MIL/MM3 (4.50-5.90); RED CELL DISTRIBUTION WIDTH 13.1 % (11.6-17.2); WHITE BLOOD COUNT 5.7 TH/MM3 (4.0-11.0)
[2017-09-12 21:46] LABS: CHLORIDE 103 MEQ/L (98-107); SODIUM (NA) 137 MEQ/L (136-145)
[2017-09-12 21:49] LABS: ALBUMIN 3.1 GM/DL (3.4-5.0); BICARBONATE 30.6 MEQ/L (21.0-32.0); BLOOD UREA NITROGEN 18 MG/DL (7-18); CALCIUM 8.5 MG/DL (8.5-10.1); GLUCOSE,RANDOM 114 MG/DL (74-106)
[2017-09-12 21:51] LABS: INTERNATIONAL NORMALIZED RATIO 1.1 RATIO; PROTHROMBIN TIME - PATIENT 11.6 SEC (9.8-11.6)
[2017-09-12 21:52] LABS: ALT (GPT) 21 U/L (12-78); AST (GOT) 41 U/L (15-37)
[2017-09-12 21:53] LABS: GLOMERULAR FILTRATION RATE 49 ML/MIN (>89)
[2017-09-12 21:54] LABS: TOTAL BILIRUBIN ADULT 0.4 MG/DL (0.2-1.0); TOTAL PROTEIN 8.1 GM/DL (6.4-8.2)
[2017-09-12 21:55] LABS: ALKALINE PHOSPHATASE 83 U/L (45-117)
[2017-09-12 21:57] LABS: TROPONIN I LESS THAN 0.02 NG/ML (0.02-0.05)
--- NOTE | 2017-09-12 21:57 | RADRPT ---
EXAM DATE/TIME: 09/12/2017 21:35 [facility] COMPARISON: No previous studies available for comparison. INDICATIONS : Possible syncope. AMS. MEDICAL HISTORY : Down syndrome. SURGICAL HISTORY : Cataracts. ENCOUNTER: Initial ACUITY: 1 day PAIN SCORE: 0/10 LOCATION: Bilateral chest FINDINGS: A single view of the chest demonstrates the lungs to be symmetrically aerated without evidence of mas s, infiltrate or effusion. The cardiomediastinal contours are unremarkable. Osseous structures are intact. CONCLUSION: No acute disease. Mitesh Alberto MD on September 12, 2017 at 21:55 Board Certified Radiologist. This report was verified electronically.
[2017-09-12 22:05] LABS: BILIRUBIN, URINE NEG (NEG); BLOOD, URINE MOD (NEG); GLUCOSE,URINE NEG (NEG); KETONE, URINE TRACE mg/dL (NEG); NITRITE,URINE POS (NEG); URINE LEUKOCYTE ESTERASE NEG (NEG)
[2017-09-12 22:10] LABS: URINE COLOR YELLOW (YELLW/STRAW)
[2017-09-12 22:11] LABS: WBC, URINE 0-2 /hpf (0-5)
[2017-09-12 22:12] LABS: BACTERIA, URINE MANY /hpf; SQUAMOUS EPITHELIAL CELL URINE 0-5 /hpf (0-5)
[2017-09-12] MEDS ORDERED: cefTRIAXone INJ 1,000 MG in SODIUM CHLORIDE 0.9% INJ 100 ML IV ONE (22:45)
[2017-09-12 22:47] VITALS: BP 103/67; PULSE 82; RESP 20; O2SAT 99
--- NOTE | 2017-09-12 23:01 | PD ---
HPI Chief Complaint: Altered Mental Status Time Seen by Provider: 21:09 Travel History International Travel<30 days: No Contact w/Intl Traveler<30days: No Traveled to known affect area: No History of Present Illness HPI Patient is a 52-year-old male with history of Down syndrome and dementia, who comes in from his assisted living facility due to "not acting right." He was admitted to [facility] and discharged this afternoon. During the stay, his seizure medication was increased as it was thought that he was having "silent seizures." Per his healthcare proxy, he is not eating or drinking and is refusing to walk. She says this is a change for him and she feels he needs to be admitted. He is unable to provide any history. [facility] Past Medical History Blood Disorders: No Heart Rhythm Problems: No Cancer: No Cardiac Catheterization: No Cardiovascular Problems: Yes High Cholesterol: Yes Congestive Heart Failure: No Dementia: Yes Developmental Delay: Yes (DOWNS SYNDROME) Diabetes: No Diminished Hearing: No Endocrine: No Gastrointestinal Disorders: Yes (GERD) Immune Disorder: No Musculoskeletal: No Neurologic: Yes Psychiatric: No Reproductive: No Respiratory: No Seizures: Yes Thyroid Disease: Yes Past Surgical History Coronary Artery Bypass Graft: No Other Surgery: No Social History Alcohol Use: No Tobacco Use: No Substance Use: No Allergies-Medications (Allergen,Severity, Reaction): Coded Allergies: succinylcholine (Unverified Allergy, Unknown, 09/10/17) Reported Meds & Prescriptions Reported Meds & Active Scripts Active Lamotrigine 100 Mg Tab 100 Mg PO TID 30 Days Reported Levothyroxine (Levothyroxine Sodium) 25 Mcg Tab 25 Mcg PO DAILY Claritin (Loratadine) 10 Mg Cap 10 Mg PO DAILY Zocor (Simvastatin) 20 Mg Tab 20 Mg PO HS Ranitidine (Ranitidine HCl) 150 Mg Cap 150 Mg PO BID Review of Systems ROS Limitations: Other: (Dementia) Physical Exam Narrative GENERAL: Awake and alert, in no acute distress. SKIN: Focused skin assessment warm/dry. No wounds or signs of infection. HEAD: Atraumatic. Normocephalic. EYES: Pupils equal and round. No scleral icterus. ENT: Mucous membranes pink and moist. NECK: Trachea midline. No JVD. CARDIOVASCULAR: Regular rate and rhythm. No murmur appreciated. RESPIRATORY: No accessory muscle use. Clear to auscultation. Breath sounds equal bilaterally. GASTROINTESTINAL: Abdomen soft, non-tender, nondistended. MUSCULOSKELETAL: No obvious deformities. No clubbing. No cyanosis. No edema. NEUROLOGICAL: Awake and alert. No obvious cranial nerve deficits. Motor grossly within normal limits. Patient only states hi, and yes. Data Data Last Documented VS Vital Signs Date Time Temp Pulse Resp B/P (MAP) Pulse Ox O2 Delivery O2 Flow Rate FiO2 09/12/17 22:47 82 20 103/67 (79) 99 09/12/17 21:05 99.5 09/12/17 21:05 Room Air Orders Orders Electrocardiogram (09/12/17 21:09) Ammonia (09/12/17 21:09) Complete Blood Count With Diff (09/12/17:) Comprehensive Metabolic Panel (09/12/17 21:) Creatine Kinase (Cpk) (09/12/17 21:09) Prothrombin Time / Inr (Pt) (09/12/17 21:) Act Partial Throm Time (Ptt) (09/12/17 21:09) Troponin I (09/12/17 21:) Urinalysis - C+S If Indicated (09/12/17 21:09) Chest, Single Ap (09/12/17 21:09) Blood Glucose (09/12/17 21:09) Ecg Monitoring (09/12/17 21:) Iv Access Insert/Monitor (09/12/17 21:09) Cath For Specimen (09/12/17 21:09) Oximetry (09/12/17 21:09) Sodium Chloride 0.9% Flush (Ns Flush) (09/12/17 21:15) Sodium Chlor 0.9% 1000 Ml Inj (Ns 1000 M (09/12/17 21:09) Influenzae A/B Antigen (09/12/17 21:09) CKMB (09/12/17 21:15) CKMB% (09/12/17 21:15) Urine Culture (09/12/17 21:50) Ceftriaxone Inj (Rocephin Inj) (09/12/17 22:45) Labs Laboratory Tests Test 09/12/17 21:15 09/12/17 21:50 White Blood Count 5.7 TH/MM3 Red Blood Count 4.58 MIL/MM3 Hemoglobin 13.7 GM/DL Hematocrit 41.8 % Mean Corpuscular Volume 91.3 FL Mean Corpuscular Hemoglobin 30.0 PG Mean Corpuscular Hemoglobin Concent 32.8 % Red Cell Distribution Width 13.1 % Platelet Count 290 TH/MM3 Mean Platelet Volume 6.9 FL Neutrophils (%) (Auto) 68.8 % Lymphocytes (%) (Auto) 20.5 % Monocytes (%) (Auto) 9.9 % Eosinophils (%) (Auto) 0.2 % Basophils (%) (Auto) 0.6 % Neutrophils # (Auto) 3.9 TH/MM3 Lymphocytes # (Auto) 1.2 TH/MM3 Monocytes # (Auto) 0.6 TH/MM3 Eosinophils # (Auto) 0.0 TH/MM3 Basophils # (Auto) 0.0 TH/MM3 CBC Comment DIFF FINAL Differential Comment Prothrombin Time 11.6 SEC Prothromb Time International Ratio 1.1 RATIO Activated Partial Thromboplast Time 26.5 SEC Blood Urea Nitrogen 18 MG/DL Creatinine 1.50 MG/DL Random Glucose 114 MG/DL Total Protein 8.1 GM/DL Albumin 3.1 GM/DL Calcium Level 8.5 MG/DL Alkaline Phosphatase 83 U/L Aspartate Amino Transf (AST/SGOT) 41 U/L Alanine Aminotransferase (ALT/SGPT) 21 U/L Total Bilirubin 0.4 MG/DL Sodium Level 137 MEQ/L Potassium Level 3.9 MEQ/L Chloride Level 103 MEQ/L Carbon Dioxide Level 30.6 MEQ/L Anion Gap 3 MEQ/L Estimat Glomerular Filtration Rate 49 ML/MIN Ammonia LESS THAN 10 MCMOL/L Total Creatine Kinase 871 U/L Creatine Kinase MB 13.0 NG/ML Creatine Kinase MB % 1.5 % Troponin I LESS THAN 0.02 NG/ML Urine Color YELLOW Urine Turbidity HAZY Urine pH 6.0 Urine Specific [place] 1.021 Urine Protein NEG mg/dL Urine Glucose (UA) NEG mg/dL Urine Ketones TRACE mg/dL Urine Occult Blood MOD Urine Nitrite POS Urine Bilirubin NEG Urine Leukocyte Esterase NEG Urine RBC 4-9 /hpf Urine WBC 0-2 /hpf Urine Squamous Epithelial Cells 0-5 /hpf Urine Bacteria MANY /hpf Microscopic Urinalysis Comment CATH-CULTURE IND MDM Medical Decision Making Medical Screen Exam Complete: Yes Emergency Medical Condition: Yes Medical Record Reviewed: Yes Interpretation(s) ECG shows NSR at 80, no ST elevation or depression, normal intervals. Differential Diagnosis Electrolyte abnormality versus dehydration versus infection Narrative Course Patient is a 52-year-old male with history of Down syndrome and dementia, who comes in because caregivers are concerned for change in mental status. Patient is unable to provide any history, exam shows no acute abnormalities. IV established, labs sent. Labs concerning for a total CK of 871. Urinalysis is positive for UTI. Patient given IV fluids. Given a dose of Rocephin. His healthcare proxy was concerned that he is not drinking, however the nurse was able to get him to drink a full glass of water without any difficulty. Patient will be admitted for UTI with change in mental status as well as dehydration. Diagnosis Primary Impression: UTI (urinary tract infection) Qualified Codes: N30.00 - Acute cystitis without hematuria Additional Impressions: Dehydration Change in mental status Qualified Codes: R41.82 - Altered mental status, unspecified Admitting Information Admitting Physician Requests: Admit Sarah Do MD Sep 12, 2017 23:01
[2017-09-12] MEDS: SODIUM CHLOR 0.9% 1000 ML INJ 1,000 ML IV SCH (23:09)
[2017-09-12] MEDS ORDERED: NALOXONE HCL 0.4 MG/ML AMP IV PUSH PRN (23:15)
[2017-09-12 23:30] VITALS: BP 98/64; PULSE 68; RESP 20; TEMP 98.2; O2SAT 97
[2017-09-13] VITALS (7 sets, daily range): BP systolic 91–112; BP diastolic 50–72; PULSE 62–88; RESP 16–18; TEMP 97.3–98.6; O2SAT 94–99
[2017-09-13 06:37] LABS: AUTOMATED NEUTROPHIL # 2.7 TH/MM3 (1.8-7.7); BASOPHIL % 0.4 % (0.0-2.0); EOSINOPHIL % 0.4 % (0.0-4.0); HEMATOCRIT 36.8 % (39.0-51.0); HEMOGLOBIN 12.4 GM/DL (13.0-17.0); LYMPHOCYTE # 1.3 TH/MM3 (1.0-4.8); MEAN CELL VOLUME 90.1 FL (80.0-100.0); MEAN CORPUSCULAR HEMOGLOBIN 30.4 PG (27.0-34.0); MEAN CORPUSCULAR HGB CONC 33.7 % (32.0-36.0); MEAN PLATELET VOLUME 7.2 FL (7.0-11.0); MONO % 13.9 % (0.0-8.0); MONOCYTE # 0.6 TH/MM3 (0-0.9); NEUT % 57.3 % (16.0-70.0); PLATELET COUNT 195 TH/MM3 (150-450); RED BLOOD COUNT 4.08 MIL/MM3 (4.50-5.90); RED CELL DISTRIBUTION WIDTH 13.4 % (11.6-17.2); WHITE BLOOD COUNT 4.6 TH/MM3 (4.0-11.0)
[2017-09-13 06:45] LABS: CALCIUM 7.8 MG/DL (8.5-10.1)
[2017-09-13 06:46] LABS: BICARBONATE 28.7 MEQ/L (21.0-32.0)
[2017-09-13 06:49] LABS: CREATININE 1.2 MG/DL (0.60-1.30)
[2017-09-13] MEDS: FAMOTIDINE 20 MG TAB PO SCH ×2 (09:00→21:33)
[2017-09-13] MEDS: SODIUM CHLORIDE 0.9% FLUSH 10 ML FLUSH IV FLUSH SCH ×2 (09:00→21:00)
[2017-09-13] MEDS ORDERED: lamoTRIgine 100 MG TAB PO SCH (09:00)
[2017-09-13] MEDS: SODIUM CHLOR 0.9% 1000 ML INJ 1,000 ML IV SCH (09:54)
[2017-09-13] MEDS: LEVOTHYROXINE SODIUM 25 MCG TAB PO SCH (09:55)
--- NOTE | 2017-09-13 13:45 | HHI.HP ---
HPI Service [facility] Primary Care Physician Unknown Admission Diagnosis Dehydration, AMS, UTI Diagnoses: Chief Complaint: : Altered mental status Travel History International Travel<30 Days: No Contact w/Intl Traveler <30 Da: No Traveled to Known Affected Are: No History of Present Illness This patient is a 52 year-old gentleman with advanced Down syndrome and dementia. He is brought in from his assisted living facility because he was not "acting right'.. Apparently he was brought into the hospital 09/10 for a similar episode. At that time he had an EEG and workup and seizure medicine was increased. Patient has chronic hypotension on this is unchanged. Patient has not had any witnessed seizures but has been mostly sleeping. A review of the chart this is similar to an episode in November of last year. History is obtained from the chart and from the care providers which accompanied the patient. There've been no issues on telemetry. His last admission a few days ago Keppra was started. He had a CT of the head there which was unremarkable as well as a scope of laboratory analysis which were unremarkable. The patient also had been on Aricept for dementia. At this time he appears to have a urinary tract infection and ceftriaxone has been started. Patient's blood pressure is about stable at baseline. He is still however not quite awakened to his baseline which is apparently very talkative and very active. On my second evaluation with this patient he is wide awake and eating his lunch without difficulty. He is still a poor historian due to development mental delay however he is much more alert and conversant. Review of Systems ROS Limitations: Clinical Condition Psychiatric: COMPLAINS OF: Confusion Past Family Social History Past Medical History Down syndrome, with dementia Hypothyroidism Hyperlipidemia GERD Past Surgical History None Reported Medications Reviewed in the EMR Allergies: Coded Allergies: succinylcholine (Unverified Allergy, Unknown, 09/10/17) Active Ordered Medications Reviewed in the EMR Family History Unknown Social History Lives in a retirement, no tobacco or alcohol dependency Physical Exam Vital Signs Vital Signs Date Time Temp Pulse Resp B/P (MAP) Pulse Ox O2 Delivery O2 Flow Rate FiO2 09/13/17 08:00 97.7 62 16 93/56 (68) 99 2/16/18 04:00 98.5 75 18 112/60 (77) 94 09/13/17 01:03 97.7 88 16 110/70 (83) 95 09/13/17 00:30 76 20 98/72 (81) 98 09/12/17 23:30 98.2 68 20 98/64 (75) 97 09/12/17 22:47 82 20 103/67 (79) 99 09/12/17 22:42 20 97 09/12/17 21:05 99.5 80 20 97/64 (75) 96 09/12/17 21:05 96 Room Air Physical Exam GENERAL: This is a well-nourished, patient appears stated age, sleeping, moves all 4 extremities SKIN: No rashes, ecchymoses or lesions. Cool and dry. HEAD: Atraumatic. Normocephalic. No temporal or scalp tenderness. EYES: Pupils equal round and reactive. Extraocular motions intact. No scleral icterus. No injection or drainage. ENT: Nose without bleeding, purulent drainage or septal hematoma. Throat without erythema, tonsillar hypertrophy or exudate. Uvula midline. Airway patent. NECK: Trachea midline. No JVD or lymphadenopathy. Supple, nontender, no meningeal signs. CARDIOVASCULAR: Regular rate and rhythm without murmurs, gallops, or rubs. RESPIRATORY: Clear to auscultation. Breath sounds equal bilaterally. No wheezes , rales, or rhonchi. GASTROINTESTINAL: Abdomen soft, non-tender, nondistended. No hepato-splenomegaly , or palpable masses. No guarding. MUSCULOSKELETAL: Extremities without clubbing, cyanosis, or edema. No joint tenderness, effusion, or edema noted. No calf tenderness. Negative Homans sign bilaterally. NEUROLOGICAL: Patient not easy to arouse Laboratory Laboratory Tests Test 09/12/17 21:15 09/12/17 21:50 09/13/17 06:10 White Blood Count 5.7 4.6 Red Blood Count 4.58 4.08 Hemoglobin 13.7 12.4 Hematocrit 41.8 36.8 Mean Corpuscular Volume 91.3 90.1 Mean Corpuscular Hemoglobin 30.0 30.4 Mean Corpuscular Hemoglobin Concent 32.8 33.7 Red Cell Distribution Width 13.1 13.4 Platelet Count 290 195 Mean Platelet Volume 6.9 7.2 Neutrophils (%) (Auto) 68.8 57.3 Lymphocytes (%) (Auto) 20.5 28.0 Monocytes (%) (Auto) 9.9 13.9 Eosinophils (%) (Auto) 0.2 0.4 Basophils (%) (Auto) 0.6 0.4 Neutrophils # (Auto) 3.9 2.7 Lymphocytes # (Auto) 1.2 1.3 Monocytes # (Auto) 0.6 0.6 Eosinophils # (Auto) 0.0 0.0 Basophils # (Auto) 0.0 0.0 CBC Comment DIFF FINAL DIFF FINAL Differential Comment Prothrombin Time 11.6 Prothromb Time International Ratio 1.1 Activated Partial Thromboplast Time 26.5 Blood Urea Nitrogen 18 16 Creatinine 1.50 1.20 Random Glucose 114 101 Total Protein 8.1 Albumin 3.1 Calcium Level 8.5 7.8 Alkaline Phosphatase 83 Aspartate Amino Transf (AST/SGOT) 41 Alanine Aminotransferase (ALT/SGPT) 21 Total Bilirubin 0.4 Sodium Level 137 139 Potassium Level 3.9 3.8 Chloride Level 103 106 Carbon Dioxide Level 30.6 28.7 Anion Gap 3 4 Estimat Glomerular Filtration Rate 49 63 Ammonia LESS THAN 10 Total Creatine Kinase 871 Creatine Kinase MB 13.0 Creatine Kinase MB % 1.5 Troponin I LESS THAN 0.02 Urine Color YELLOW Urine Turbidity HAZY Urine pH 6.0 Urine Specific [place] 1.021 Urine Protein NEG Urine Glucose (UA) NEG Urine Ketones TRACE Urine Occult Blood MOD Urine Nitrite POS Urine Bilirubin NEG Urine Leukocyte Esterase NEG Urine RBC 4-9 Urine WBC 0-2 Urine Squamous Epithelial Cells 0-5 Urine Bacteria MANY Microscopic Urinalysis Comment CATH-CULTURE IND Date/Time Source Procedure Growth Status 09/12/17 21:15 Nasal Washing Influenza Types A,B Antigen (EMI) - Final NEGATIVE FOR FLU A AND B ANTIGEN.... Complete 09/12/17 21:50 Urine Catheterized Urine Urine Culture Pending Received Result Diagram: 09/13/1760909/13/17609 Imaging Last Impressions Chest X-Ray 09/12/172108 Signed Impressions: Service Date/Time: August 21:35 - CONCLUSION: No acute disease. MD Deven Conway VTE Risk Assessment Deven VTE Risk Assessment: No/Low Risk (score <= 1) Caprini Risk Assessment Model Point Value = 1 Point Value = 2 Point Value = 3 Point Value = 5 Age 41-60 Minor surgery BMI > 25 kg/m2 Swollen legs Varicose veins or History of unexplained or recurrent spontaneous Oral contraceptives or hormone replacement Sepsis (< 1 month) Serious lung disease, including pneumonia (< 1 month) Abnormal pulmonary function Acute myocardial infarction Congestive heart failure (< 1 month) History of inflammatory bowel disease Medical patient at bed rest Age 61-74 Arthroscopic surgery Major open surgery (> 45 min) Laparoscopic surgery (> 45 min) Malignancy Confined to bed (> 72 hours) Immobilizing plaster cast Central venous access Age >= 75 History of VTE Family history of VTE Factor V Leiden Prothrombin [id number] Lupus anticoagulant Anticardiolipin antibodies Elevated serum homocysteine Heparin-induced thrombocytopenia Other congenital or acquired thrombophilia Stroke (< 1 month) Elective arthroplasty Hip, pelvis, or leg fracture Acute spinal cord injury (< 1 month) Prophylaxis Regimen Total Risk Factor Score Risk Level Prophylaxis Regimen 0-1 Low Early ambulation 2 Moderate Order ONE of the following: *Sequential Compression Device (SCD) *Heparin 5000 units SQ BID 3-4 Higher Order ONE of the following medications: *Heparin 5000 units SQ TID *Enoxaparin/Lovenox 40 mg SQ daily (WT < 150 kg, CrCl > 30 mL/min) *Enoxaparin/Lovenox 30 mg SQ daily (WT < 150 kg, CrCl > 10-29 mL/min) *Enoxaparin/Lovenox 30 mg SQ BID (WT < 150 kg, CrCl > 30 mL/min) AND/OR *Sequential Compression Device (SCD) 5 or more Highest Order ONE of the following medications: *Heparin 5000 units SQ TID (Preferred with Epidurals) *Enoxaparin/Lovenox 40 mg SQ daily (WT < 150 kg, CrCl > 30 mL/min) *Enoxaparin/Lovenox 30 mg SQ daily (WT < 150 kg, CrCl > 10-29 mL/min) *Enoxaparin/Lovenox 30 mg SQ BID (WT < 150 kg, CrCl > 30 mL/min) AND *Sequential Compression Device (SCD) Assessment and Plan Problem List: (1) Metabolic encephalopathy ICD Code: G93.41 - Metabolic encephalopathy Plan: Superimposed on apparent dementia and Down syndrome. Likely due to urinary tract infection, continue antibiotics IV and follow cultures Continue to evaluate for medication side effects and or organic causes (2) UTI (urinary tract infection) ICD Code: N39.0 - Urinary tract infection, site not specified Status: Acute Plan: Continue empiric antibiotics (3) Dehydration ICD Code: E86.0 - Dehydration Status: Acute Plan: Patient with acute kidney injury likely prerenal Continue with IV hydration and follow progress (4) Rhabdomyolysis ICD Code: M62.82 - Rhabdomyolysis Plan: Follow-up CPK , Continue IV hydration (5) Seizure disorder ICD Code: G40.909 - Epilepsy, unspecified, not intractable, without status epilepticus Plan: Will resume Lamictal twice a day (6) Urinary retention ICD Code: R33.9 - Retention of urine, unspecified Plan: With resistance on Thurston insertion 600 and 700 cc on 2 bladder scans Previous imaging does show a possible bladder mass in the past Will follow-up with ultrasound Problem Qualifiers (1) UTI (urinary tract infection): Qualified Codes: N30.00 - Acute cystitis without hematuria Dalia Nunez MD Sep 13, 2017 13:45
--- NOTE | 2017-09-13 15:05 | RADRPT ---
EXAM DATE/TIME: 09/13/2017 14:45 [facility] COMPARISON: No previous studies available for comparison. EXTERNAL COMPARISON : [facility], Bladder ultrasound, July 05, 2014 INDICATIONS : Urinary tract infection. MEDICAL HISTORY : Hypertension. Hypercholesterolemia. Gastroesophageal reflux disease. Thyroid disease. Dementia. Cardi ac disorder. Downs syndrome. SURGICAL HISTORY : None. ENCOUNTER: Initial ACUITY: 1 day PAIN SCORE: Nonresponsive. LOCATION: Bilateral flank TECHNOLOGIST IMPRESSION: MEASUREMENTS: RIGHT KIDNEY: 9.2 x 4.5 x 3.2 cm LEFT KIDNEY: 9.6 x 3.9 x 3.7 cm FINDINGS: RIGHT KIDNEY: Renal cortex is normal in thickness with subtle increased echotexture. No hydronephrosis, stone, or mass. LEFT KIDNEY: Renal cortex is normal in thickness with subtle increased echotexture. No hydronephrosis, stone, or mass. BLADDER: Bladder is decompressed secondary to Thurston catheter. CONCLUSION: 1. No evidence for obstructive uropathy. 2. Slightly increased renal cortical echogenicity which may be seen in medical renal disease. Keagan Capone MD on September 13, 2017 at 15:02 Board Certified Radiologist. This report was verified electronically.
[2017-09-13] MEDS ORDERED: PRAVASTATIN SOD 40 MG TAB PO SCH (21:00)
[2017-09-13] MEDS: lamoTRIgine 100 MG TAB PO SCH (21:33)
[2017-09-13] MEDS: cefTRIAXone INJ 1,000 MG in SODIUM CHLORIDE 0.9% INJ 100 ML IV SCH (23:15)
--- NOTE | 2017-09-14 00:22 | EKG ---
Date Performed: 09/12/2017 Time Performed: 21:36:52 PTAGE: 52 years EKG: Sinus rhythm NORMAL ECG PREVIOUS TRACING : 09/10/2017 11.44 Since the prior tracing, there has been no significant sullivan DOCTOR: Mari Fox Interpretating Date/Time 09/14/2017 00:21:16
[2017-09-14] MEDS: SODIUM CHLOR 0.9% 1000 ML INJ 1,000 ML IV SCH ×3 (00:31→12:59)
[2017-09-14 01:34] VITALS: BP 90/52; PULSE 74; RESP 18; TEMP 98; O2SAT 97
[2017-09-14 05:17] VITALS: BP 112/54; PULSE 66; RESP 18; TEMP 98.3; O2SAT 97
[2017-09-14 07:16] LABS: AUTOMATED NEUTROPHIL # 2.8 TH/MM3 (1.8-7.7); BASOPHIL % 0.4 % (0.0-2.0); EOSINOPHIL # 0.1 TH/MM3 (0-0.4); EOSINOPHIL % 1.1 % (0.0-4.0); HEMATOCRIT 32.6 % (39.0-51.0); HEMOGLOBIN 11.4 GM/DL (13.0-17.0); LYMPH % 27.9 % (9.0-44.0); LYMPHOCYTE # 1.3 TH/MM3 (1.0-4.8); MEAN CORPUSCULAR HEMOGLOBIN 31.7 PG (27.0-34.0); MEAN CORPUSCULAR HGB CONC 34.9 % (32.0-36.0); MONO % 9.7 % (0.0-8.0); MONOCYTE # 0.5 TH/MM3 (0-0.9); NEUT % 60.9 % (16.0-70.0); PLATELET COUNT 197 TH/MM3 (150-450); RED BLOOD COUNT 3.59 MIL/MM3 (4.50-5.90); RED CELL DISTRIBUTION WIDTH 13.2 % (11.6-17.2); WHITE BLOOD COUNT 4.7 TH/MM3 (4.0-11.0)
[2017-09-14 07:25] LABS: BICARBONATE 27.8 MEQ/L (21.0-32.0)
[2017-09-14 07:28] LABS: CREATININE 1.1 MG/DL (0.60-1.30)
--- NOTE | 2017-09-14 07:59 | HHI.FF ---
Face to Face Verification Diagnosis: (1) Seizure disorder (2) UTI (urinary tract infection) (3) Dehydration (4) Change in mental status Physical Therapy Order: Evaluate and Treat, Improve ambulation, Strength and gait training Home Health Nursing Order: Medical education Signs/symptoms of disease process Nursing assessment with vital signs I have seen patient Kobi Menjivar on 09/14/17. My clinical findings support the need for the requested home health care services because: Deconditioned w/ increased weakness Limited ability to care for self I certify that my clinical findings support that this patient is homebound because: Unsteady gait/balance Unsafe to leave home unassisted Sanjeev Spencer Sep 14, 2017 07:59
[2017-09-14 08:00] VITALS: BP 99/62; PULSE 68; RESP 18; TEMP 98.1; O2SAT 96
--- NOTE | 2017-09-14 08:32 | HHI.PR ---
Subjective Remarks Patient seen and examined today for follow-up on urinary tract infection, metabolic encephalopathy. Patient is doing much better. She is being good spirits. Called me Mr. saranya lyn. He is back at his baseline mentation. Vital signs are stable, remains afebrile Objective Vitals Vital Signs Date Time Temp Pulse Resp B/P (MAP) Pulse Ox O2 Delivery O2 Flow Rate FiO2 09/14/17 05:17 98.3 66 18 112/54 (73) 97 09/14/17 01:34 98.0 74 18 90/52 (65) 97 09/13/17 21:39 98.6 73 18 111/55 (73) 98 09/13/17 16:00 97.5 67 16 95/50 (65) 99 09/13/17 12:00 97.3 68 16 91/56 (68) 95 I/O 09/13/17 09/13/17 09/13/17 09/14/17 09/14/17 09/14/17 07:00 15:00 23:00 07:00 15:00 23:00 Intake Total 510 ml 240 ml 120 ml 1100 ml Output Total 1000 ml 900 ml 1200 ml Balance 510 ml -760 ml -780 ml -100 ml Intake Oral 240 ml 120 ml IV Total 510 ml 1100 ml Output Urine Total 1000 ml 900 ml 1200 ml # Voids 0 # Bowel Movements 0 Result Diagram: 09/14/1765409/14/17 06 Objective Remarks GENERAL: Well-developed, well-nourished, in no acute distress. alert HEENT: Head is normocephalic without any lesions or masses noted. Facial features are symmetric. Eyes: Extraocular muscles are intact. NECK: Supple without any masses. Trachea midline no deviation. No JVD, CARDIAC: Regular rhythm, regular rate. S1/S2 are heard. No murmurs gallops or rubs. LUNGS: Clear to auscultation bilaterally. No wheeze, rhonchi or rales. No use of accessory muscles on inspiration or expiration. ABDOMEN: Soft, nontender. Nondistended. Bowel sounds heard in all 4 quadrants. No organomegaly or masses. Negative rebound, negative guarding EXTREMITIES: No edema, pulses are equal bilaterally. No cyanosis or clubbing NEUROLOGY: Mood and affect appear appropriate. Cranial nerves II through XII grossly intact. Moving all extremities, speech is clear Urinary Catheter: Yes Assessment to: Continue Thurston insert reason: Obstruction/Retention Vascular Central Line Catheter: No A/P Assessment and Plan Metabolic encephalopathy, improved Likely secondary to urinary tract infection, dehydration superimposed with dementia and Down syndrome Ammonia level was unremarkable Urinary tract infection Rocephin has been started empirically Await cultures for appropriate antibiotics Acute kidney injury secondary to dehydration, resolved Continue IV fluid monitor renal function Rhabdomyolysis Continue IV fluids Monitor CPK Urinary retention, unknown etiology Bladder scans was 607 100 cc Thurston catheter had been placed Previous imaging does show possible bladder mass Renal bladder ultrasound does not indicate any acute abnormality Start Flomax and start Thurston training History of seizures Seizure precautions home medications continued DVT prevention Sequential compression devices Discharge Planning Discharged back to [facility] with home health care as recommended by physical therapy when patient clinically stable Activity: Ad mirtha. Diet: Regular diet Medications per medication reconciliation Follow-up primary medical doctor in one week Sanjeev Spencer Sep 14, 2017 08:32
[2017-09-14] MEDS: lamoTRIgine 100 MG TAB PO SCH ×2 (08:35→21:31)
[2017-09-14] MEDS: LEVOTHYROXINE SODIUM 25 MCG TAB PO SCH (08:35)
[2017-09-14] MEDS: FAMOTIDINE 20 MG TAB PO SCH ×2 (08:35→21:31)
[2017-09-14] MEDS: SODIUM CHLORIDE 0.9% FLUSH 10 ML FLUSH IV FLUSH SCH ×2 (08:35→21:32)
[2017-09-14] MEDS ORDERED: TAMSULOSIN HCL 0.4 MG CAP PO ONE (10:15)
[2017-09-14 12:00] VITALS: BP 101/56; PULSE 65; RESP 18; TEMP 97.8; O2SAT 95
[2017-09-14] MEDS ORDERED: CEFU1TAB18 PO (15:09)
[2017-09-14 16:00] VITALS: BP 103/52; PULSE 56; RESP 16; TEMP 97.8; O2SAT 99
[2017-09-14] MEDS: cefTRIAXone INJ 1,000 MG in SODIUM CHLORIDE 0.9% INJ 100 ML IV SCH (21:31)
[2017-09-14 21:36] VITALS: BP 108/73; PULSE 70; RESP 16; TEMP 97.9; O2SAT 96
[2017-09-15 00:45] VITALS: BP 90/55; PULSE 64; RESP 16; TEMP 98; O2SAT 97
[2017-09-15] MEDS: SODIUM CHLORIDE 0.9% FLUSH 10 ML FLUSH IV FLUSH SCH (07:53)
[2017-09-15] MEDS: FAMOTIDINE 20 MG TAB PO SCH (07:53)
[2017-09-15] MEDS: LEVOTHYROXINE SODIUM 25 MCG TAB PO SCH (07:53)
[2017-09-15] MEDS: lamoTRIgine 100 MG TAB PO SCH (07:53)
[2017-09-15 08:00] VITALS: BP 97/50; PULSE 65; RESP 18; TEMP 97.2; O2SAT 99
[2017-09-15] MEDS ORDERED: TAMSULOSIN HCL 0.4 MG CAP PO SCH (09:00)
--- NOTE | 2017-09-15 10:35 | HHI.PR ---
Subjective Remarks 52-year-old male seen in follow-up for altered mental status. Patient is clinically and significantly improved. Patient was discharged yesterday, however was unable to arrange transportation back to residential. No changes overnight. Patient will leave once transportation arranged Objective Vitals Vital Signs Date Time Temp Pulse Resp B/P (MAP) Pulse Ox O2 Delivery O2 Flow Rate FiO2 09/15/17 08:00 97.2 65 18 97/50 (66) 99 09/15/17 04:53 09/15/17 00:45 98.0 64 16 90/55 (67) 97 09/14/17 21:36 97.9 70 16 108/73 (85) 96 09/14/17 16:00 97.8 56 16 103/52 (69) 99 09/14/17 12:00 97.8 65 18 101/56 (71) 95 I/O 09/14/17 09/14/17 09/14/17 09/15/17 09/15/17 09/15/17 06:59 14:59 22:59 06:59 14:59 22:59 Intake Total 1100 ml 625 ml 100 ml Output Total 1200 ml 650 ml Balance -100 ml -25 ml 100 ml Intake Oral 625 ml IV Total 1100 ml 100 ml Output Urine Total 1200 ml 650 ml Bladder Scan Volume Amount 189 ml # Voids 2 # Bowel Movements 0 0 1 Result Diagram: 09/14/1765409/14/17654 Objective Remarks GENERAL: Well-developed, well-nourished, in no acute distress. alert HEENT: Head is normocephalic without any lesions or masses noted. Facial features are symmetric. Eyes: Extraocular muscles are intact. NECK: Supple without any masses. Trachea midline no deviation. No JVD, CARDIAC: Regular rhythm, regular rate. S1/S2 are heard. No murmurs gallops or rubs. LUNGS: Clear to auscultation bilaterally. No wheeze, rhonchi or rales. No use of accessory muscles on inspiration or expiration. ABDOMEN: Soft, nontender. Nondistended. Bowel sounds heard in all 4 quadrants. No organomegaly or masses. Negative rebound, negative guarding EXTREMITIES: No edema, pulses are equal bilaterally. No cyanosis or clubbing NEUROLOGY: Mood and affect appear appropriate. Cranial nerves II through XII grossly intact. Moving all extremities, speech is clear Urinary Catheter: No Vascular Central Line Catheter: No A/P Assessment and Plan Metabolic encephalopathy, resolved Likely secondary to urinary tract infection, dehydration superimposed with dementia and Down syndrome Ammonia level was unremarkable Urinary tract infection, likely contamination Rocephin has been started empirically Urine culture showing staph species coag negative Acute kidney injury secondary to dehydration, resolved Continue IV fluid monitor renal function Rhabdomyolysis, improved Continue IV fluids Monitor CPK Urinary retention, unknown etiology, resolved Bladder scans originally were 600-700 cc Thurston catheter Thurston was placed Previous imaging does show possible bladder mass Renal bladder ultrasound does not indicate any acute abnormality Status post Flomax, Thurston was removed Patient urinating on his own. History of seizures Seizure precautions home medications continued DVT prevention Sequential compression devices Discharge Planning Discharged back to [facility] with home health care with transportation arranged Activity: Ad mirtha. Diet: Regular diet Medications per medication reconciliation Follow-up primary medical doctor in one week Sanjeev Spencer Sep 15, 2017 10:35
--- NOTE | 2017-09-15 11:07 | HHI.DS ---
Discharge Summary Admission Date Sep 12, 2017 at 23:07 Discharge Date: Sep 15, 2017 Admitting Diagnosis Dehydration, AMS, UTI (1) Metabolic encephalopathy ICD Code: G93.41 - Metabolic encephalopathy (2) UTI (urinary tract infection) ICD Code: N39.0 - Urinary tract infection, site not specified Status: Acute (3) Dehydration ICD Code: E86.0 - Dehydration Status: Acute (4) Rhabdomyolysis ICD Code: M62.82 - Rhabdomyolysis (5) Seizure disorder ICD Code: G40.909 - Epilepsy, unspecified, not intractable, without status epilepticus (6) Urinary retention ICD Code: R33.9 - Retention of urine, unspecified Procedures None Brief History - From Admission This patient is a 52 year-old gentleman with advanced Down syndrome and dementia. He is brought in from his assisted living facility because he was not "acting right'.. Apparently he was brought into the hospital 09/10 for a similar episode. At that time he had an EEG and workup and seizure medicine was increased. Patient has chronic hypotension on this is unchanged. Patient has not had any witnessed seizures but has been mostly sleeping. A review of the chart this is similar to an episode in November of last year. History is obtained from the chart and from the care providers which accompanied the patient. There've been no issues on telemetry. His last admission a few days ago Keppra was started. He had a CT of the head there which was unremarkable as well as a scope of laboratory analysis which were unremarkable. The patient also had been on Aricept for dementia. At this time he appears to have a urinary tract infection and ceftriaxone has been started. Patient's blood pressure is about stable at baseline. He is still however not quite awakened to his baseline which is apparently very talkative and very active. On my second evaluation with this patient he is wide awake and eating his lunch without difficulty. He is still a poor historian due to development mental delay however he is much more alert and conversant. CBC/BMP: 09/14/17 0655 09/14/17 0655 Significant Findings Laboratory Tests Test 09/12/17 21:15 09/12/17 21:50 09/13/17 06:10 09/14/17 06:55 Mean Platelet Volume 6.9 FL (7.0-11.0) Monocytes (%) (Auto) 9.9 % (0.0-8.0) 13.9 % (0.0-8.0) 9.7 % (0.0-8.0) Creatinine 1.50 MG/DL (0.60-1.30) Random Glucose 114 MG/DL (74-106) Albumin 3.1 GM/DL (3.4-5.0) Aspartate Amino Transf (AST/SGOT) 41 U/L (15-37) Anion Gap 3 MEQ/L (5-15) 4 MEQ/L (5-15) Estimat Glomerular Filtration Rate 49 ML/MIN (>89) 63 ML/MIN (>89) 70 ML/MIN (>89) Ammonia LESS THAN 10 MCMOL/L Total Creatine Kinase 871 U/L (39-308) Creatine Kinase MB 13.0 NG/ML (0.5-3.6) Troponin I LESS THAN 0.02 NG/ML Urine Turbidity HAZY (CLEAR) Urine Ketones TRACE mg/dL (NEG) Urine Occult Blood MOD (NEG) Urine Nitrite POS (NEG) Urine RBC 4-9 /hpf (0-3) Urine Bacteria MANY /hpf (NONE) Red Blood Count 4.08 MIL/MM3 (4.50-5.90) 3.59 MIL/MM3 (4.50-5.90) Hemoglobin 12.4 GM/DL (13.0-17.0) 11.4 GM/DL (13.0-17.0) Hematocrit 36.8 % (39.0-51.0) 32.6 % (39.0-51.0) Calcium Level 7.8 MG/DL (8.5-10.1) 8.0 MG/DL (8.5-10.1) Test 09/14/17 14:00 Total Creatine Kinase 328 U/L (39-308) PE at Discharge GENERAL: Well-developed, well-nourished, in no acute distress. alert HEENT: Head is normocephalic without any lesions or masses noted. Facial features are symmetric. Eyes: Extraocular muscles are intact. NECK: Supple without any masses. Trachea midline no deviation. No JVD, CARDIAC: Regular rhythm, regular rate. S1/S2 are heard. No murmurs gallops or rubs. LUNGS: Clear to auscultation bilaterally. No wheeze, rhonchi or rales. No use of accessory muscles on inspiration or expiration. ABDOMEN: Soft, nontender. Nondistended. Bowel sounds heard in all 4 quadrants. No organomegaly or masses. Negative rebound, negative guarding EXTREMITIES: No edema, pulses are equal bilaterally. No cyanosis or clubbing NEUROLOGY: Mood and affect appear appropriate. Cranial nerves II through XII grossly intact. Moving all extremities, speech is clear Hospital Course 52-year-old gentleman with Down syndrome and dementia who is recently brought to the hospital because of altered mental status, physical deconditioning. Patient was recently hospitalized and had full neurological workup with EEG and neurology. His Lamictal level was increased to 3 times daily. However patient was discharged back to his [facility] on 09/12/17, it was indicated the patient had worsening neurological status and weakness, unable to ambulate they brought him back to the hospital for evaluation. Patient did have workup performed and did indicate some mild renal insufficiency with mild rhabdomyolysis. Urinalysis indicating possible urinary tract infection. Because of those reasons it was recommended patient be observed in the hospital for further recommendations. Patient started on IV fluids with significant improvement of his renal function. Rhabdomyolysis was monitored and CPK did trend down nicely. Upon presentation patient did have some urinary retention with bladder scans reading 600-700. A Thurston was placed at that time. Patient was given Flomax 0.8 mg. Thurston was removed and patient was urinating on his own. Culture was followed and did indicate greater than 100,000 colonies of staph coag negative. Patient was given Rocephin 1 g IV 2 and will be continued on Ceftin upon discharge. Patient is significantly improved. Plan to discharge back to [facility] with home health care. Case has been consulted. Will discharge once arrangements made. Pt Condition on Discharge: Stable Discharge Disposition: Discharge Home Discharge Time: > 30 minutes Discharge Instructions DIET: Follow Instructions for: As Tolerated, No Restrictions Activities you can perform: Regular-No Restrictions Follow up Referrals: PCP Follow-up - 1 Week New Medications: Cefuroxime (Ceftin) 250 Mg Tab 250 MG PO BID for Infection for 5 Days, #10 TAB Continued Medications: Lamotrigine (Lamotrigine) 100 Mg Tab 100 MG PO TID for Control Seizures for 30 Days, #60 TAB 0 Refills Levothyroxine (Levothyroxine) 25 Mcg Tab 25 MCG PO DAILY for Thyroid, #30 TAB 0 Refills Loratadine (Claritin) 10 Mg Cap 10 MG PO DAILY for Allergy Management, CAP 0 Refills Ranitidine (Ranitidine) 150 Mg Cap 150 MG PO BID, #60 CAP 0 Refills Simvastatin (Zocor) 20 Mg Tab 20 MG PO HS for Cholesterol Management, #30 TAB 0 Refills Sanjeev Spencer Sep 15, 2017 11:07
== END 2017-09-15 10:57 | disposition home health service (06) ==
LOC: PHED 21:03 → PHEDA 23:07 → INTOOBSV 23:07 → PH3A 09-13 00:49
PROVIDERS: ADMIT Hospitalist; ATTEND Hospitalist
DX: G93.41 Metabolic encephalopathy (principal); N30.00 Acute cystitis without hematuria; R33.9 Retention of urine, unspecified; B95.7 Other staphylococcus as the cause of diseases classified elsewhere; M62.82 Rhabdomyolysis; G40.909 Epilepsy, unspecified, not intractable, without status epilepticus; Q90.9 Down syndrome, unspecified; F03.90 Unspecified dementia, unspecified severity, without behavioral disturbance, psychotic disturbance, mood disturbance, and anxiety; I95.89 Other hypotension; E86.0 Dehydration; K21.9 Gastro-esophageal reflux disease without esophagitis; E07.9 Disorder of thyroid, unspecified; E03.9 Hypothyroidism, unspecified; E78.5 Hyperlipidemia, unspecified; R79.1 Abnormal coagulation profile; R73.9 Hyperglycemia, unspecified; Z79.899 Other long term (current) drug therapy
CPT/HCPCS: 71045; 76775; 80048; 80053; 81001; 82140; 82550; 82552; 84484; 85025; 85610; 85730; 86403; 87077; 87086; 87186; 87804; 93005; 96361; 96365; 96366; 97163; 99285; G0378; G8987; G8988; J0696; J7030; P9612

== ENCOUNTER 2017-11-25 07:26 | Emergency (ER) | payer MEDICARE, OTHER ==
[~2017-11-25] VITALS: Ht 177.8 cm; Wt 75.0 kg
[~2017-11-25 07:26] MED LIST changes: +CEFU1TAB18 PO; -IBUP-232 PO
[2017-11-25 07:32] VITALS: BP 127/97; PULSE 89; RESP 20; TEMP 97.6; O2SAT 95
--- NOTE | 2017-11-25 07:39 | PD ---
HPI Chief Complaint: seizure Time Seen by Provider: 07:27 Travel History International Travel<30 days: No Contact w/Intl Traveler<30days: No History of Present Illness HPI The patient is 52-year-old male who arrives via EMS from assisted living facility. He has a history of Down syndrome and epilepsy. Staff report he was sitting on the edge of his bed this morning and fell to the floor striking his forehead on the ground. EMS reports a grand mal seizure. Agitation/postictal state reported in route. EMS: Fingerstick glucose was 94 on scene, heart rate 86-90 and blood pressure 126 over palp. Patient takes Keppra. PFSH Past Medical History Blood Disorders: No Heart Rhythm Problems: No Cancer: No Cardiac Catheterization: No Cardiovascular Problems: Yes High Cholesterol: Yes Congestive Heart Failure: No Dementia: Yes Developmental Delay: Yes (DOWNS SYNDROME) Diabetes: No Diminished Hearing: No Endocrine: No Gastrointestinal Disorders: Yes (GERD) Immune Disorder: No Musculoskeletal: No Neurologic: Yes Psychiatric: No Reproductive: No Respiratory: No Seizures: Yes Thyroid Disease: Yes Past Surgical History Coronary Artery Bypass Graft: No Other Surgery: No Social History Alcohol Use: No Tobacco Use: No Substance Use: No Allergies-Medications (Allergen,Severity, Reaction): Coded Allergies: succinylcholine (Unverified Allergy, Unknown, 11/25/17) Reported Meds & Prescriptions Reported Meds & Active Scripts Active Reported Midodrine 5 Mg Tab 5 Mg PO TID Trazodone (Trazodone HCl) 50 Mg Tab 50 Mg PO HS 7 Days Melatonin 3 Mg Tab 6 Mg PO HS PRN Levothyroxine (Levothyroxine Sodium) 25 Mcg Tab 25 Mcg PO DAILY Claritin (Loratadine) 10 Mg Cap 10 Mg PO DAILY Zocor (Simvastatin) 20 Mg Tab 20 Mg PO HS Ranitidine (Ranitidine HCl) 150 Mg Cap 150 Mg PO BID Review of Systems Except as stated in HPI: all other systems reviewed are Neg General / Constitutional: No: Fever Physical Exam Narrative GENERAL: 52-year-old male well-nourished well-developed moderate agitation, Down 's facies SKIN: Warm and dry. HEAD: Normocephalic. Contusion about the right forehead approximately 2 cm. EYES: Pupils equal and round. No scleral icterus. No injection or drainage. ENT: No nasal bleeding or discharge. Mucous membranes pink and moist. NECK: Trachea midline. No JVD. CARDIOVASCULAR: Regular rate and rhythm. RESPIRATORY: No accessory muscle use. Clear to auscultation. Breath sounds equal bilaterally. GASTROINTESTINAL: Abdomen soft, non-tender, nondistended. Hepatic and splenic margins not palpable. MUSCULOSKELETAL: Extremities without clubbing, cyanosis, or edema. No obvious deformities. NEUROLOGICAL: Moving all extremities normally. No focal cranial nerve deficit. PSYCHIATRIC: Down syndrome. Somewhat agitated. Data Data Last Documented VS Vital Signs Date Time Temp Pulse Resp B/P (MAP) Pulse Ox O2 Delivery O2 Flow Rate FiO2 11/25/17 07:32 97.6 89 20 127/97 (107) 95 Orders Orders Complete Blood Count With Diff (11/25/17 07:34) Basic Metabolic Panel (Bmp) (11/25/17 07:34) Electrocardiogram (11/25/17 ) Ct Brain W/O Iv Contrast(Rout) (11/25/17 ) Blood Glucose (11/25/17 07:34) Ecg Monitoring (11/25/17 07:34) Iv Access Insert/Monitor (11/25/17 07:34) Oximetry (11/25/17 07:34) Sodium Chloride 0.9% Flush (Ns Flush) (11/25/17 07:45) Lorazepam Inj (Ativan Inj) (11/25/17 07:45) Labs Laboratory Tests Test 11/25/17 07:40 White Blood Count 5.0 TH/MM3 Red Blood Count 3.91 MIL/MM3 Hemoglobin 12.5 GM/DL Hematocrit 36.8 % Mean Corpuscular Volume 94.3 FL Mean Corpuscular Hemoglobin 31.9 PG Mean Corpuscular Hemoglobin Concent 33.8 % Red Cell Distribution Width 17.4 % Platelet Count 235 TH/MM3 Mean Platelet Volume 7.3 FL Neutrophils (%) (Auto) 55.3 % Lymphocytes (%) (Auto) 31.7 % Monocytes (%) (Auto) 8.7 % Eosinophils (%) (Auto) 3.0 % Basophils (%) (Auto) 1.3 % Neutrophils # (Auto) 2.8 TH/MM3 Lymphocytes # (Auto) 1.6 TH/MM3 Monocytes # (Auto) 0.4 TH/MM3 Eosinophils # (Auto) 0.1 TH/MM3 Basophils # (Auto) 0.1 TH/MM3 CBC Comment DIFF FINAL Differential Comment Blood Urea Nitrogen 22 MG/DL Creatinine 1.27 MG/DL Random Glucose 92 MG/DL Calcium Level 8.6 MG/DL Sodium Level 143 MEQ/L Potassium Level 4.7 MEQ/L Chloride Level 110 MEQ/L Carbon Dioxide Level 27.8 MEQ/L Anion Gap 5 MEQ/L Estimat Glomerular Filtration Rate 59 ML/MIN MDM Medical Decision Making Medical Screen Exam Complete: Yes Emergency Medical Condition: Yes Medical Record Reviewed: Yes Differential Diagnosis Electrolyte abnormality, subtherapeutic epilepsy medication, intracranial hemorrhage Narrative Course CBC & BMP Diagram 11/25/17 07:40 Calcium Level 8.[address] 11/25/17 0000 Signed Impressions: Service Date/Time: Saturday, November 25, 2017 08:01 - CONCLUSION: 1. No acute intracranial abnormality seen. 2. Cerebral atrophy. 3. Focal soft tissue swelling of the right medial frontal scalp. Jose Elias Park MD Workup is essentially unremarkable. The patient has epilepsy had a seizure today. There is mild prerenal azotemia. Will provide a liter of saline and plan for discharge. Diagnosis Primary Impression: Seizure Additional Impressions: Down syndrome Seizure disorder Dehydration Referrals: Primary Care Physician call for appointment Med/Other Pt SpecificInfo: No Change to Meds Disposition: 01 DISCHARGE HOME Condition: Stable Franco Nolasco MD Nov 25, 2017 07:39
[2017-11-25] MEDS ORDERED: SODIUM CHLORIDE 0.9% FLUSH 10 ML FLUSH IVF PRN (07:45)
[2017-11-25] MEDS ORDERED: LORazepam 2 MG/ML VIAL IVS ONE (07:45)
[2017-11-25 08:05] LABS: AUTOMATED NEUTROPHIL # 2.8 TH/MM3 (1.8-7.7); BASOPHIL # 0.1 TH/MM3 (0-0.2); BASOPHIL % 1.3 % (0.0-2.0); EOSINOPHIL # 0.1 TH/MM3 (0-0.4); HEMATOCRIT 36.8 % (39.0-51.0); HEMOGLOBIN 12.5 GM/DL (13.0-17.0); LYMPH % 31.7 % (9.0-44.0); LYMPHOCYTE # 1.6 TH/MM3 (1.0-4.8); MEAN CELL VOLUME 94.3 FL (80.0-100.0); MEAN CORPUSCULAR HEMOGLOBIN 31.9 PG (27.0-34.0); MEAN CORPUSCULAR HGB CONC 33.8 % (32.0-36.0); MEAN PLATELET VOLUME 7.3 FL (7.0-11.0); MONO % 8.7 % (0.0-8.0); MONOCYTE # 0.4 TH/MM3 (0-0.9); NEUT % 55.3 % (16.0-70.0); PLATELET COUNT 235 TH/MM3 (150-450); RED BLOOD COUNT 3.91 MIL/MM3 (4.50-5.90); RED CELL DISTRIBUTION WIDTH 17.4 % (11.6-17.2)
--- NOTE | 2017-11-25 08:29 | RADRPT ---
EXAM DATE/TIME: 11/25/2017 08:01 [facility] COMPARISON: CT BRAIN W/O CONTRAST, September 10, 2017, 12:18. INDICATIONS : Seizure. RADIATION DOSE: 56.35 CTDIvol (mGy) MEDICAL HISTORY : Dementia. Seizures. SURGICAL HISTORY : None. ENCOUNTER: Initial ACUITY: 1 day PAIN SCALE: Non-responsive LOCATION: cranial TECHNIQUE: Multiple contiguous axial images were obtained of the head. Using automated exposure control and adj ustment of the mA and/or kV according to patient size, radiation dose was kept as low as reasonably a chievable to obtain optimal diagnostic quality images. DICOM format image data is available electro nically for review and comparison. FINDINGS: CEREBRUM: The ventricles and cortical sulci are widened. No evidence of midline shift, mass lesion, hemorrhag e or acute infarction. No extra-axial fluid collections are seen. POSTERIOR FOSSA: The cerebellum and brainstem are intact. The 4th ventricle is midline. The cerebellopontine angle i s unremarkable. EXTRACRANIAL: The visualized portion of the orbits is intact. There are focal calcifications at the distal optic ne rves at the junction with the posterior globe. There is focal soft tissue swelling at the right media l frontal scalp. There is persistent opacification of the left maxillary sinus. SKULL: The calvaria is intact. No evidence of skull fracture. CONCLUSION: 1. No acute intracranial abnormality seen. 2. Cerebral atrophy. 3. Focal soft tissue swelling of the right medial frontal scalp. Jose Elias Park MD on November 25, 2017 at 8:24 Board Certified Radiologist. This report was verified electronically.
[2017-11-25 08:30] LABS: BICARBONATE 27.8 MEQ/L (21.0-32.0); CALCIUM 8.6 MG/DL (8.5-10.1); CREATININE 1.27 MG/DL (0.60-1.30)
[2017-11-25] MEDS ORDERED: TRAZ50TA12 PO (08:36)
[2017-11-25] MEDS ORDERED: MELA3TAB PO (08:36)
[2017-11-25] MEDS ORDERED: MIDO5TAB PO (08:36)
[2017-11-25] MEDS ORDERED: LACTATED RINGER'S 1000 ML INJ 1,000 ML IV ONE (08:45)
[2017-11-25 10:07] VITALS: BP 92/64; PULSE 88; RESP 20; O2SAT 94
[2017-11-25 12:14] VITALS: BP 107/80; PULSE 62; RESP 20; O2SAT 99
== END 2017-11-25 16:38 | disposition home or self-care (01) ==
LOC: NEPE 07:26
DX: G40.409 Other generalized epilepsy and epileptic syndromes, not intractable, without status epilepticus (principal); Q90.9 Down syndrome, unspecified; E86.0 Dehydration; E78.00 Pure hypercholesterolemia, unspecified; K21.9 Gastro-esophageal reflux disease without esophagitis
CPT/HCPCS: 70450; 80048; 85025; 96361; 96374; 99285; J2060; J7120

== ENCOUNTER 2017-12-17 07:09 | Observation (INO) | payer MEDICARE, OTHER ==
[2017-12-17] VITALS (8 sets, daily range): BP systolic 88–128; BP diastolic 56–72; PULSE 54–61; RESP 18–19; TEMP 97.5; O2SAT 98–100
[~2017-12-17] VITALS: Ht 172.7 cm; Wt 70.0 kg
[~2017-12-17 07:09] MED LIST changes: -CEFU1TAB18 PO; -LAMO100T PO; +MELA3TAB PO; +MIDO5TAB PO; +TRAZ50TA12 PO
--- NOTE | 2017-12-17 07:31 | PD ---
HPI Chief Complaint: Chest Pain Time Seen by Provider: 07:29 Travel History International Travel<30 days: No Contact w/Intl Traveler<30days: No Traveled to known affect area: No History of Present Illness HPI 52-year-old male presents by ambulance with complaint to staff at [facility] that he was not wanting to eat in his chest was bothering him last night. He complained of this again this morning so they brought him here. The patient currently denies any complaints but is a very poor historian and additional history is limited at this time. [facility] Past Medical History Blood Disorders: No Heart Rhythm Problems: No Cancer: No Cardiac Catheterization: No Cardiovascular Problems: Yes High Cholesterol: Yes Congestive Heart Failure: No Dementia: Yes Developmental Delay: Yes (DOWNS SYNDROME) Diabetes: No Diminished Hearing: No Endocrine: No Gastrointestinal Disorders: Yes (GERD) Immune Disorder: No Musculoskeletal: No Neurologic: Yes Psychiatric: No Reproductive: No Respiratory: No Seizures: Yes Thyroid Disease: Yes Past Surgical History Coronary Artery Bypass Graft: No Other Surgery: No Social History Alcohol Use: No Tobacco Use: No Substance Use: No Allergies-Medications (Allergen,Severity, Reaction): Coded Allergies: succinylcholine (Verified Allergy, Unknown, 12/17/17) Reported Meds & Prescriptions Reported Meds & Active Scripts Active Reported Tylenol (Acetaminophen) 325 Mg Tab 650 Mg PO Q8HR Valproic Acid Liq 250 Mg/5 Ml Syp 250 Mg PO BID Midodrine 5 Mg Tab 5 Mg PO TID Trazodone (Trazodone HCl) 50 Mg Tab 50 Mg PO HS 7 Days Levothyroxine (Levothyroxine Sodium) 25 Mcg Tab 25 Mcg PO DAILY Claritin (Loratadine) 10 Mg Cap 10 Mg PO DAILY Zocor (Simvastatin) 20 Mg Tab 20 Mg PO HS Ranitidine (Ranitidine HCl) 150 Mg Cap 150 Mg PO BID Review of Systems ROS Limitations: Poor Historian Physical Exam Exam Limitations: Poor Historian Narrative GENERAL: 52-year-old male in no apparent distress, Down syndrome SKIN: Focused skin assessment warm/dry. HEAD: Atraumatic. EYES: Pupils equal and round. No scleral icterus. No injection or drainage. ENT: No nasal bleeding or discharge. Mucous membranes pink and moist. NECK: Trachea midline. No JVD. CARDIOVASCULAR: Regular rate and rhythm. RESPIRATORY: No accessory muscle use. Clear to auscultation. Breath sounds equal bilaterally. GASTROINTESTINAL: Abdomen soft, mild tenderness diffusely, nondistended. No rebound MUSCULOSKELETAL: No obvious deformities. No clubbing. No cyanosis. NEUROLOGICAL: Awake, moves all extremities Data Data Last Documented VS Vital Signs Date Time Temp Pulse Resp B/P (MAP) Pulse Ox O2 Delivery O2 Flow Rate FiO2 12/17/17 09:41 58 19 106/70 (82) 98 Room Air 12/17/17 07:12 97.5 Orders Orders Electrocardiogram (12/17/17 07:31) Ckmb (Isoenzyme) Profile (12/17/17 07:31) Complete Blood Count With Diff (12/17/17 07:31) Comprehensive Metabolic Panel (12/17/17 07:31) Magnesium (Mg) (12/17/17 07:31) Prothrombin Time / Inr (Pt) (12/17/17 07:31) Act Partial Throm Time (Ptt) (12/17/17 07:31) Troponin I (12/17/17 07:31) Lipase (12/17/17 07:31) Chest, Single Ap (12/17/17 07:31) Ecg Monitoring (12/17/17 07:31) Bilateral Bp Monitoring (12/17/17 07:31) Iv Access Insert/Monitor (12/17/17 07:31) Oximetry (12/17/17 07:31) Sodium Chloride 0.9% Flush (Ns Flush) (12/17/17 07:45) Ct Abd/Pel W Iv Contrast(Rout) (12/17/17 ) Urinalysis - C+S If Indicated (12/17/17 09:14) Iohexol 350 Inj (Omnipaque 350 Inj) (12/17/17 09:35) Cath For Specimen (12/17/17 10:34) Electrocardiogram (12/17/17 10:45) Ckmb (Isoenzyme) Profile (12/17/17 10:45) Troponin I (12/17/17 10:45) Admit Order (Ed Use Only) (12/17/17 11:28) Labs Laboratory Tests Test 12/17/17 07:40 12/17/17 10:50 White Blood Count 4.3 TH/MM3 Red Blood Count 4.10 MIL/MM3 Hemoglobin 13.2 GM/DL Hematocrit 38.7 % Mean Corpuscular Volume 94.4 FL Mean Corpuscular Hemoglobin 32.1 PG Mean Corpuscular Hemoglobin Concent 34.1 % Red Cell Distribution Width 15.9 % Platelet Count 250 TH/MM3 Mean Platelet Volume 7.7 FL Neutrophils (%) (Auto) 54.9 % Lymphocytes (%) (Auto) 32.7 % Monocytes (%) (Auto) 8.7 % Eosinophils (%) (Auto) 2.5 % Basophils (%) (Auto) 1.2 % Neutrophils # (Auto) 2.4 TH/MM3 Lymphocytes # (Auto) 1.4 TH/MM3 Monocytes # (Auto) 0.4 TH/MM3 Eosinophils # (Auto) 0.1 TH/MM3 Basophils # (Auto) 0.0 TH/MM3 CBC Comment DIFF FINAL Differential Comment Prothrombin Time 11.3 SEC Prothromb Time International Ratio 1.1 RATIO Activated Partial Thromboplast Time 25.4 SEC Blood Urea Nitrogen 24 MG/DL Creatinine 1.17 MG/DL Random Glucose 82 MG/DL Total Protein 7.7 GM/DL Albumin 3.4 GM/DL Calcium Level 8.5 MG/DL Magnesium Level 2.1 MG/DL Alkaline Phosphatase 67 U/L Aspartate Amino Transf (AST/SGOT) 20 U/L Alanine Aminotransferase (ALT/SGPT) 28 U/L Total Bilirubin 0.4 MG/DL Sodium Level 139 MEQ/L Potassium Level 4.1 MEQ/L Chloride Level 104 MEQ/L Carbon Dioxide Level 28.1 MEQ/L Anion Gap 7 MEQ/L Estimat Glomerular Filtration Rate 65 ML/MIN Total Creatine Kinase 58 U/L Troponin I LESS THAN 0.02 NG/ML Lipase 106 U/L Urine Color YELLOW Urine Turbidity CLEAR Urine pH 6.0 Urine Specific [place] 1.016 Urine Protein NEG mg/dL Urine Glucose (UA) NEG mg/dL Urine Ketones NEG mg/dL Urine Occult Blood NEG Urine Nitrite NEG Urine Bilirubin NEG Urine Urobilinogen 0.2 MG/DL Urine Leukocyte Esterase NEG Urine RBC LESS THAN 1 /hpf Urine WBC 1 /hpf Urine Bacteria RARE /hpf Urine Mucus FEW /lpf Microscopic Urinalysis Comment CULT NOT INDICATED MDM Medical Decision Making Medical Screen Exam Complete: Yes Emergency Medical Condition: Yes Medical Record Reviewed: Yes (Past history confirmed) Interpretation(s) CBC & BMP Diagram 12/17/17 07:40 Total Protein 7.7, Albumin 3.4, Calcium Level 8.5, Magnesium Level 2.1, Alkaline Phosphatase 67, Aspartate Amino Transf (AST/SGOT) 20, Alanine Aminotransferase (ALT/SGPT) 28, Total Bilirubin 0.4 Last 24 hours Impressions Chest X-Ray 12/17/17 0731 Signed Impressions: CONCLUSION: No acute abnormality or significant interval change. Abdomen/Pelvis CT 12/17/17 0000 Signed Impressions: CONCLUSION: Nonspecific adenopathy, patient with urinalysis negative Differential Diagnosis Gastritis, pancreatitis, atypical cardiac Narrative Course We will check blood work, urinalysis, chest x-ray, CT abdomen and reevaluate. left message to talk with guardian CT with nonspecific adenopathy, urinalysis negative. Patient very poor historian and with report of chest pain. Given age and hyperlipidemia will put in for second cardiac enzymes and have monitored in the chest pain center where they can continue to monitor blood work and attempt to reach guardian Diagnosis Primary Impression: Chest pain Qualified Codes: R07.9 - Chest pain, unspecified Admitting Information Admitting Physician Requests: Samara Padron MD December 17, 2017 07:31
[2017-12-17] MEDS ORDERED: SODIUM CHLORIDE 0.9% FLUSH 10 ML FLUSH IVF PRN (07:45)
[2017-12-17 07:57] LABS: AUTOMATED NEUTROPHIL # 2.4 TH/MM3 (1.8-7.7); BASOPHIL % 1.2 % (0.0-2.0); EOSINOPHIL # 0.1 TH/MM3 (0-0.4); EOSINOPHIL % 2.5 % (0.0-4.0); HEMATOCRIT 38.7 % (39.0-51.0); HEMOGLOBIN 13.2 GM/DL (13.0-17.0); LYMPH % 32.7 % (9.0-44.0); LYMPHOCYTE # 1.4 TH/MM3 (1.0-4.8); MEAN CELL VOLUME 94.4 FL (80.0-100.0); MEAN CORPUSCULAR HEMOGLOBIN 32.1 PG (27.0-34.0); MEAN CORPUSCULAR HGB CONC 34.1 % (32.0-36.0); MEAN PLATELET VOLUME 7.7 FL (7.0-11.0); MONO % 8.7 % (0.0-8.0); MONOCYTE # 0.4 TH/MM3 (0-0.9); NEUT % 54.9 % (16.0-70.0); PLATELET COUNT 250 TH/MM3 (150-450); RED CELL DISTRIBUTION WIDTH 15.9 % (11.6-17.2); WHITE BLOOD COUNT 4.3 TH/MM3 (4.0-11.0)
[2017-12-17] MEDS ORDERED: TYLE325T PO (08:02)
[2017-12-17] MEDS ORDERED: VALP250S2 PO (08:02)
[2017-12-17 08:07] LABS: INTERNATIONAL NORMALIZED RATIO 1.1 RATIO; PROTHROMBIN TIME - PATIENT 11.3 SEC (9.8-11.6)
[2017-12-17 08:09] LABS: ALBUMIN 3.4 GM/DL (3.4-5.0); ALT (GPT) 28 U/L (12-78); AST (GOT) 20 U/L (15-37); BICARBONATE 28.1 MEQ/L (21.0-32.0); BLOOD UREA NITROGEN 24 MG/DL (7-18); CALCIUM 8.5 MG/DL (8.5-10.1); CHLORIDE 104 MEQ/L (98-107); CREATININE 1.17 MG/DL (0.60-1.30); GLOMERULAR FILTRATION RATE 65 ML/MIN (>89); GLUCOSE,RANDOM 82 MG/DL (74-106); MAGNESIUM 2.1 MG/DL (1.5-2.5); SODIUM (NA) 139 MEQ/L (136-145)
--- NOTE | 2017-12-17 08:10 | RADRPT ---
EXAM DATE: 12/17/2017 7:57 AM EDT AGE/SEX: 52 years / Male INDICATIONS: Pain and discomfort in anterior chest CLINICAL DATA: This is the patient's initial encounter. Patient reports that signs and symptoms have been present for 1 day and indicates a pain score of Nonresponsive. MEDICAL/SURGICAL HISTORY: None. None. COMPARISON: [facility], CHEST SINGLE AP, 09/12/2017. . FINDINGS: Mild diffuse interstitial prominence without new focal pleural or parenchymal opacities. C ardiomediastinal contours are within normal limits. Bony thorax is intact. CONCLUSION: No acute abnormality or significant interval change. Electronically signed by: Keagan Capone MD 12/17/2017 8:09 AM EDT
[2017-12-17 08:14] LABS: ALKALINE PHOSPHATASE 67 U/L (45-117); TOTAL BILIRUBIN ADULT 0.4 MG/DL (0.2-1.0); TOTAL PROTEIN 7.7 GM/DL (6.4-8.2); TROPONIN I LESS THAN 0.02 NG/ML (0.02-0.05)
--- NOTE | 2017-12-17 09:11 | RADRPT ---
EXAM DATE: 12/17/2017 8:54 AM EDT AGE/SEX: 52 years / Male INDICATIONS: Generalized abdominal pain. CLINICAL DATA: This is the patient's initial encounter. Patient reports that signs and symptoms have been present for 1 day and indicates a pain score of 2/10. MEDICAL/SURGICAL HISTORY: Cardiovascular disease. None. ORAL CONTRAST: No oral contrast ingested. RADIATION DOSE: 7.40 CTDI (mGy) COMPARISON: No prior [facility] exams available for comparison. TECHNIQUE: Multiple contiguous axial images were obtained through the abdomen and pelvis following b olus infusion of 98 ml Omnipaque 350 (iohexol) nonionic water-soluble contrast as a single exam dos e. No oral contrast ingested. Using automated exposure control and adjustment of the mA and/or kV ac cording to patient size, the radiation dose was kept as low as reasonably achievable to obtain optima l diagnostic quality images. FINDINGS: Lower Lungs: The visualized lower lungs are clear. Liver: The liver has a homogeneous density without space-occupying lesion. There is no dilation of th e biliary tree. Spleen: Homogeneous density without enlargement. Pancreas: Unremarkable without mass or calcification. Kidneys: Normal in size and shape. No evidence of mass or hydronephrosis. Adrenal Glands: Unremarkable. Aorta: The aorta and proximal iliac vessels are grossly unremarkable without aneurysmal dilation. Bowel/Mesentery: The bowel loops are grossly unremarkable. The cecum and sigmoid colon have a normal configuration. The appendix is unremarkable. No inflammatory changes. Abdominal Wall: Intact. Retroperitoneum: No evidence of adenopathy in the retrocrural, para-aortic, or deep pelvic regions. Bladder: Contours are smooth. Reproductive Organs: No abnormal masses or calcifications seen. Inguinal: There are several mildly prominent nonspecific bilateral inguinal lymph nodes. They measur e approximately 1.7-1.9 cm. Bony Structures: Mild degenerative changes. CONCLUSION: 1. Nonspecific mildly prominent bilateral inguinal lymph nodes suggestive of adenopathy of unknown e tiology.. 2. No acute abdominal or pelvic pathology. Electronically signed by: Chance Ralph MD 12/17/2017 9:10 AM EDT
[2017-12-17] MEDS ORDERED: IOHEXOL 350 MG/ML 10 ML VIAL (for RAD DIAG) IVCONTRAST ONE (09:35)
[2017-12-17 11:08] LABS: BILIRUBIN, URINE NEG (NEG); BLOOD, URINE NEG (NEG); GLUCOSE,URINE NEG (NEG); KETONE, URINE NEG (NEG); NITRITE,URINE NEG (NEG); URINE COLOR YELLOW (YELLW/STRAW); URINE LEUKOCYTE ESTERASE NEG (NEG)
[2017-12-17 11:10] LABS: BACTERIA, URINE RARE /hpf; MUCUS URINE FEW /lpf (OCC)
[2017-12-17] MEDS ORDERED: ACETAMINOPHEN 500 MG CPLT PO PRN (12:00)
[2017-12-17] MEDS ORDERED: ONDANSETRON ODT 4 MG TAB PO PRN (12:00)
[2017-12-17] MEDS ORDERED: ACETAMINOPHEN/HYDROcodone 325 MG/7.5 MG TAB PO PRN (12:00)
--- NOTE | 2017-12-17 12:44 | HHI.HP ---
HPI Primary Care Physician Unknown Chief Complaint Chest pain History of Present Illness This is a 52-year-old male with history of Down syndrome, seizure disorder, hyperlipidemia, hypothyroidism that presents to ED with reported complaint of chest pain. Patient is a poor historian and does not offer any complaints to me and did not complain of chest discomfort or any discomfort to the ER physician either. But apparently the patient had complained of chest pain last evening and then again this morning to staff members at [facility] where the patient resides. Again patient does not answer questions from me. I discussed this patient with his legal guardian Mrs. Glynn and discussed with her the chest pain center protocol which included repeating cardiac enzymes and if ruling out then stress testing. She does not want to have stress test performed on him nor any other interventions. She is requested that we repeat the cardiac labs and that he could be discharge if those are normal. Review of Systems Review of systems is unobtainable. Patient is poor historian. Past Family Social History Allergies: Coded Allergies: succinylcholine (Verified Allergy, Unknown, 12/17/17) Past Medical History Down syndrome, hyperlipidemia, hypothyroidism, and seizure disorder. Legal guardian denies history of heart disease, hypertension, and diabetes. Past Surgical History Patient not aware of surgeries. But is poor historian. Reported Medications Reported Meds & Active Scripts Active Reported Tylenol (Acetaminophen) 325 Mg Tab 650 Mg PO Q8HR Valproic Acid Liq 250 Mg/5 Ml Syp 250 Mg PO BID Midodrine 5 Mg Tab 5 Mg PO TID Levothyroxine (Levothyroxine Sodium) 25 Mcg Tab 25 Mcg PO DAILY Claritin (Loratadine) 10 Mg Cap 10 Mg PO DAILY Zocor (Simvastatin) 20 Mg Tab 20 Mg PO HS Ranitidine (Ranitidine HCl) 150 Mg Cap 150 Mg PO BID Active Ordered Medications Current Medications Medications (Trade) Dose Ordered Sig/Miranda Route Start Time Stop Time Status Last Admin (NS Flush) 2 ml UNSCH PRN IVF 12/17/17 07:45 (Tylenol) 500 mg Q4H PRN PO 12/17/17 12:00 (Blair 7.5-325 Mg) 1 tab Q4H PRN PO 12/17/17 12:00 (Zofran Odt) 4 mg Q6H PRN PO 12/17/17 12:00 (Synthroid) 25 mcg DAILY@0600 PO 12/18/17 06:00 (Claritin) 10 mg DAILY PO 12/18/17 09:00 (Proamatine) 5 mg TID PO 12/17/17 13:00 (Pepcid) 20 mg BID PO 12/17/17 21:00 (Pravachol) 40 mg HS PO 12/17/17 21:00 Family History Family history is unknown. Social History Denies tobacco abuse. Denies alcohol abuse. Denies illicit drug use. Physical Exam Vital Signs Vital Signs Date Time Temp Pulse Resp B/P (MAP) Pulse Ox O2 Delivery O2 Flow Rate FiO2 12/17/17 12:07 60 18 113/69 (84) 99 Room Air 12/17/17 09:41 58 19 106/70 (82) 98 Room Air 12/17/17 08:23 56 18 113/65 (81) 99 Room Air 12/17/17 07:54 99 12/17/17 07:32 57 18 128/72 (90) 100 Room Air 12/17/17 07:29 58 99 Room Air 12/17/17 07:12 97.5 54 18 124/68 (86) 100 Physical Exam GENERAL: This is a well-nourished, well-developed patient, in no apparent distress. Patient speaks in clear complete sentences. Patient is pleasant. Examined with nurse at bedside. HEENT: Head is atraumatic and normocephalic. Neck is supple without lymphadenopathy and trachea is midline. No JVD or carotid bruits. CARDIOVASCULAR: Regular rate and rhythm without murmurs, gallops, or rubs. RESPIRATORY: Clear to auscultation. Breath sounds equal bilaterally. No wheezes , rales, or rhonchi. Chest wall is nontender. No use of accessory muscles. GASTROINTESTINAL: Abdomen is nontender, nondistended. Abdomen soft. No obvious pulsatile mass or bruit. No CVA tenderness. Strong femoral pulses bilaterally. Normal bowel sounds in all quadrants. MUSCULOSKELETAL: Patient is moving upper and lower extremities freely. No calf tenderness or edema, no Homans sign. Strong pulses in upper and lower extremities. NEUROLOGICAL: Patient is alert and oriented. Cranial nerves 2-12 are grossly intact. No focal deficits and speech is clear. SKIN: No rash and turgor is normal. Laboratory Laboratory Tests Test 12/17/17 07:40 12/17/17 10:50 12/17/17 12:15 White Blood Count 4.3 Red Blood Count 4.10 Hemoglobin 13.2 Hematocrit 38.7 Mean Corpuscular Volume 94.4 Mean Corpuscular Hemoglobin 32.1 Mean Corpuscular Hemoglobin Concent 34.1 Red Cell Distribution Width 15.9 Platelet Count 250 Mean Platelet Volume 7.7 Neutrophils (%) (Auto) 54.9 Lymphocytes (%) (Auto) 32.7 Monocytes (%) (Auto) 8.7 Eosinophils (%) (Auto) 2.5 Basophils (%) (Auto) 1.2 Neutrophils # (Auto) 2.4 Lymphocytes # (Auto) 1.4 Monocytes # (Auto) 0.4 Eosinophils # (Auto) 0.1 Basophils # (Auto) 0.0 CBC Comment DIFF FINAL Differential Comment Prothrombin Time 11.3 Prothromb Time International Ratio 1.1 Activated Partial Thromboplast Time 25.4 Blood Urea Nitrogen 24 Creatinine 1.17 Random Glucose 82 Total Protein 7.7 Albumin 3.4 Calcium Level 8.5 Magnesium Level 2.1 Alkaline Phosphatase 67 Aspartate Amino Transf (AST/SGOT) 20 Alanine Aminotransferase (ALT/SGPT) 28 Total Bilirubin 0.4 Sodium Level 139 Potassium Level 4.1 Chloride Level 104 Carbon Dioxide Level 28.1 Anion Gap 7 Estimat Glomerular Filtration Rate 65 Total Creatine Kinase 58 Troponin I LESS THAN 0.02 Lipase 106 Urine Color YELLOW Urine Turbidity CLEAR Urine pH 6.0 Urine Specific [place] 1.016 Urine Protein NEG Urine Glucose (UA) NEG Urine Ketones NEG Urine Occult Blood NEG Urine Nitrite NEG Urine Bilirubin NEG Urine Urobilinogen 0.2 Urine Leukocyte Esterase NEG Urine RBC LESS THAN 1 Urine WBC 1 Urine Bacteria RARE Urine Mucus FEW Microscopic Urinalysis Comment CULT NOT INDICATED Result Diagram: 12/17/17 0740 12/17/17 0740 Imaging Last 48 hours Impressions Chest X-Ray 12/17/17 0731 Signed Impressions: CONCLUSION: No acute abnormality or significant interval change. Abdomen/Pelvis CT 12/17/17 0000 Signed Impressions: CONCLUSION: Course Initial EKG is sinus rhythm without significant ST segment depressions or elevations. Caprini VTE Risk Assessment Caprini VTE Risk Assessment: No/Low Risk (score <= 1) Caprini Risk Assessment Model Point Value = 1 Point Value = 2 Point Value = 3 Point Value = 5 Age 41-60 Minor surgery BMI > 25 kg/m2 Swollen legs Varicose veins or History of unexplained or recurrent spontaneous Oral contraceptives or hormone replacement Sepsis (< 1 month) Serious lung disease, including pneumonia (< 1 month) Abnormal pulmonary function Acute myocardial infarction Congestive heart failure (< 1 month) History of inflammatory bowel disease Medical patient at bed rest Age 61-74 Arthroscopic surgery Major open surgery (> 45 min) Laparoscopic surgery (> 45 min) Malignancy Confined to bed (> 72 hours) Immobilizing plaster cast Central venous access Age >= 75 History of VTE Family history of VTE Factor V Leiden Prothrombin [id number] Lupus anticoagulant Anticardiolipin antibodies Elevated serum homocysteine Heparin-induced thrombocytopenia Other congenital or acquired thrombophilia Stroke (< 1 month) Elective arthroplasty Hip, pelvis, or leg fracture Acute spinal cord injury (< 1 month) Prophylaxis Regimen Total Risk Factor Score Risk Level Prophylaxis Regimen 0-1 Low Early ambulation 2 Moderate Order ONE of the following: *Sequential Compression Device (SCD) *Heparin 5000 units SQ BID 3-4 Higher Order ONE of the following medications: *Heparin 5000 units SQ TID *Enoxaparin/Lovenox 40 mg SQ daily (WT < 150 kg, CrCl > 30 mL/min) *Enoxaparin/Lovenox 30 mg SQ daily (WT < 150 kg, CrCl > 10-29 mL/min) *Enoxaparin/Lovenox 30 mg SQ BID (WT < 150 kg, CrCl > 30 mL/min) AND/OR *Sequential Compression Device (SCD) 5 or more Highest Order ONE of the following medications: *Heparin 5000 units SQ TID (Preferred with Epidurals) *Enoxaparin/Lovenox 40 mg SQ daily (WT < 150 kg, CrCl > 30 mL/min) *Enoxaparin/Lovenox 30 mg SQ daily (WT < 150 kg, CrCl > 10-29 mL/min) *Enoxaparin/Lovenox 30 mg SQ BID (WT < 150 kg, CrCl > 30 mL/min) AND *Sequential Compression Device (SCD) Assessment and Plan Assessment and Plan * Chest pain: Patient does not complain of this to me but he had apparently made a complaint of chest pain last evening and also this morning to staff at [facility]. I discussed this with his legal guardian and she has requested that we repeat his cardiac enzymes and if normal he can be discharged. Patient will be seen by Dr. Torres of cardiology in the chest center. Patient would be discharged home if he rules out with cardiac enzymes and EKGs. He should follow-up with local PCP. * Hyperlipidemia: Continue medication. * Hypothyroidism: Continue medication. * Seizure disorder: Continue medication. * Down syndrome: Continue his follow-up with his physician. He will be discharged back to [facility]. Patient is stable at this time. His legal guarding is agreeable to this plan. Robert Montanez December 17, 2017 12:44
[2017-12-17] MEDS: MIDODRINE 5 MG TAB PO SCH ×2 (13:00→18:21)
[2017-12-17 13:04] LABS: TROPONIN I LESS THAN 0.02 NG/ML (0.02-0.05)
[2017-12-17 14:57] LABS: TROPONIN I LESS THAN 0.02 NG/ML (0.02-0.05)
--- NOTE | 2017-12-17 16:42 | EKG ---
Date Performed: 12/17/2017 Time Performed: 08:16:47 PTAGE: 52 years EKG: Sinus rhythm NORMAL ECG PREVIOUS TRACING 09/12/17 @ 21.36.52 Since the previous tracing, no significant change noted DOCTOR: Marcellus Kilpatrick Interpretating Date/Time 12/17/2017 16:40:36
--- NOTE | 2017-12-17 18:12 | HHI.DCPOC ---
Discharge Care Plan Diagnosis: (1) Chest pain (2) Hyperlipidemia (3) Seizure disorder (4) Down syndrome Goals to Promote Your Health * To prevent worsening of your condition and complications * To maintain your health at the optimal level Directions to Meet Your Goals Take your medications as prescribed Follow your dietary instruction Follow activity as directed Keep your appointments as scheduled Take your immunizations and boosters as scheduled If your symptoms worsen call your PCP, if no PCP go to Urgent Care Center or Emergency Room Smoking is Dangerous to Your Health. Avoid second hand smoke Call the 24-hour hour crisis hotline for domestic abuse at Robert Montanez December 17, 2017 18:12
[2017-12-17] MEDS ORDERED: FAMOTIDINE 20 MG TAB PO SCH (21:00)
[2017-12-17] MEDS ORDERED: PRAVASTATIN SOD 40 MG TAB PO SCH (21:00)
[2017-12-18] MEDS ORDERED: LEVOTHYROXINE SODIUM 25 MCG TAB PO SCH (06:00)
[2017-12-18] MEDS ORDERED: LORATADINE 10 MG TAB PO SCH (09:00)
--- NOTE | 2017-12-19 16:01 | EKG ---
Date Performed: 12/17/2017 Time Performed: 16:33:27 PTAGE: 52 years EKG: SINUS BRADYCARDIA BORDERLINE ECG No change PREVIOUS TRACING : 12/17/2017 08.16 DOCTOR: Frank Dangelo Interpretating Date/Time 12/19/2017 15:59:39
== END 2017-12-17 23:13 | disposition home or self-care (01) ==
LOC: NEPC 07:09 → NEDA 11:29 → NEPHCDU 15:21
PROVIDERS: ADMIT Internal Medicine Interventional Cardiology; ATTEND Internal Medicine Interventional Cardiology
DX: R07.89 Other chest pain (principal); E78.5 Hyperlipidemia, unspecified; E03.9 Hypothyroidism, unspecified; G40.909 Epilepsy, unspecified, not intractable, without status epilepticus; R00.1 Bradycardia, unspecified; Q90.9 Down syndrome, unspecified; K21.9 Gastro-esophageal reflux disease without esophagitis
CPT/HCPCS: 71045; 74177; 80053; 81001; 82550; 83690; 83735; 84484; 85025; 85610; 85730; 93005; 99285; G0378; P9612; Q9967